=== PATIENT | male | born 1945 | race Caucasian/White ===

== ENCOUNTER 2017-04-18 07:57 | Emergency (ER) | payer BC, OTHER ==
[2017-04-18 08:04] VITALS: BP 182/70; BMI 32.1
[2017-04-18] MEDS ORDERED: TORADOL 30 MG VIAL IVP ONE (08:28)
[2017-04-18] MEDS ORDERED: ZOFRAN INJ 4 MG VIAL IVP ONE (08:36)
--- NOTE | 2017-04-18 08:36 | DR.GENAD ---
HPI - PCP Primary Care Physician: SYLVIA - Complaint/Symptoms Chief Complaint:: PT C/O RT LOWER BACK PAIN THAT RADIATES TO RT FLANK AREA. PT STATES THE PAIN STARTED LAST NIGHT WITHOUT ANY RELIEF PT STATES HE HAS BEEN NAUSEATED WITH VOMITTING THIS AM. PT STATES HE DOES HAVE A HX OF KIDNEY STONES - Source History Provided: Patient - Mode of Arrival Mode of Arrival: Ambulatory - Timing Onset of Chief Complaint: 04/17/17 PMH - PMH Past Medical History: Yes Past Medical History: Diabetes, Gout, Kidney Stones Past Surgical History: No - Family History History of Family Medical Conditions: No - Social History Does any household member use tobacco: No Alcohol Use: None Do you use any recreational Drugs:: No Lives With: Family Lives Where: Home - infectious screening In the last 2 months have you had wt loss of >10#?: NO Have you had fever, night sweats or hemotysis?: No Have you traveled outside the country in the last 6 months?: No Isolation: Standard ROS - Review of Systems Eyes: No Symptoms Reported ENTM: No Symptoms Reported Respiratoy: No Symptoms Reported Cardiovascular: No Symptoms Reported Gastrointestinal/Abdominal: No Symptoms Reported Genitourinary: Other (pain possible kidney stone) Neurological: No Symptoms Reported Musculoskeletal: No Symptoms Reported Integumentary: No Symptoms Reported Hematologic/Lymphatic: No Symptoms Reported Endocrine: No Symptoms Reported Psychiatric: No Symptoms Reported All Other Systems: Reviewed and Negative PE - Vital Signs Vitals: Temperature 97.8 F Pulse Rate 83 Respiratory Rate 18 Blood Pressure 182/70 O2 Sat by Pulse Oximetry 94 - General Limitations: No Limitations General Appearance: Alert, In No Apparent Distress - Head Head Exam: Normal Inspection, Atraumatic - Eyes Eye exam: Normal Appearance, PERRL, EOMI - ENT ENT Exam: Normal Exam External Ear Exam: Normal External Inspection TM/Canal Exam: Bilateral Normal Nose Exam: Normal Nose Exam Mouth Exam: Normal Inspection Throat Exam: Normal Inspection - Neck Neck Exam: Normal Inspection - Chest Chest Inspection: Normal Inspection - Respiratory Respiratory Exam: Normal Lung Sounds Bilat Respiratory Exam: Bilateral Clear to Auscultation - Cardiovascular Cardiovascular Exam: Regular Rate, Normal Rhythm - Abdominal Exam Abdominal Exam: Normal Inspection Abdominal Tenderness: negative: RUQ, RLQ, LUQ, LLQ, Epigastrium, Suprapubic, Diffuse, Mild, Moderate, Severe, Other - Extremities Extremities Exam: Normal Inspection, Full ROM - Back Back Exam: Normal Inspection, Full ROM - Neurologic Neurological Exam: Alert, Oriented X3 - Psychiatric Psychiatric Exam: Normal Affect - Skin Skin Exam: Warm, Dry, Intact Course - Reevaluation 1st: Improved ROR - Labs Reviewed Laboratory: Specimen Type Clean catch urine 04/18/17 08:48 Urine Color Yellow (YELLOW) 04/18/17 08:48 Urine Appearance Clear (CLEAR) 04/18/17 08:48 Urine pH 5.0 (5.0 - 8.0) 04/18/17 08:48 Ur Specific [place] 1.020 (1.000-1.030) 04/18/17 08:48 Urine Protein 4+ (NEGATIVE) 04/18/17 08:48 Urine Glucose (UA) 3+ (NEGATIVE) 04/18/17 08:48 Urine Ketones Negative (NEGATIVE) 04/18/17 08:48 Urine Occult Blood 3+ (NEGATIVE) 04/18/17 08:48 Urine Nitrite Negative (NEGATIVE) 04/18/17 08:48 Urine Bilirubin Negative (NEGATIVE) 04/18/17 08:48 Urine Urobilinogen Normal (NORMAL) 04/18/17 08:48 Ur Leukocyte Esterase Negative (NEGATIVE) 04/18/17 08:48 Urine RBC 01 - 03 /HPF (NEGATIVE) 04/18/17 08:48 Urine WBC 01 - 04 /HPF (NEGATIVE) 04/18/17 08:48 Ur Squamous Epith Cells Rare /HPF (NEGATIVE) 04/18/17 08:48 Amorphous Sediment Trace /HPF (NEGATIVE) 04/18/17 08:48 Urine Bacteria Negative /HPF (NEGATIVE) 04/18/17 08:48 Ur Culture Indicated? No/not indicated 04/18/17 08:48 - XRAY XRAY Interpreted by: Radiologist (CT Abd/Pelv: Tiny,ill defined renal calcifications may represtne tiny nonobstructing renal stones versus medullary nephrocalcinosis. No evidence of obstruction.) - Diagnosis Discharge Problem: Renal stones - Discharge Plan Condition: Stable - Follow ups/Referrals Follow ups/Referrals: NIRAJ WARD [Primary Care Provider] - 3 days - Instructions
[2017-04-18] MEDS ORDERED: TORADOL 30 MG VIAL ONE (08:39)
[2017-04-18] MEDS ORDERED: ZOFRAN INJ 4 MG VIAL ONE (08:39)
[2017-04-18] MEDS ORDERED: NS 1000 ML 1,000 ML ONE (08:39)
[2017-04-18] MEDS ORDERED: MORPHINE SULFATE INJ 4 MG IVP ONE (08:50)
[2017-04-18] MEDS ORDERED: MORPHINE SULFATE INJ 4 MG ONE (08:56)
[2017-04-18] MEDS ORDERED: NS 1000 ML 1,000 ML IV SCH (09:00)
[2017-04-18 09:12] LABS: BILIRUBIN,URINE NEGATIVE (NEGATIVE); BLOOD/HEMOGLOBIN,URINE 3+ (NEGATIVE); GLUCOSE, URINE 3+ (NEGATIVE); KETONES,URINE NEGATIVE (NEGATIVE); LEUKOCYTE ESTERASE ,URINE NEGATIVE (NEGATIVE); NITRITES,URINE NEGATIVE (NEGATIVE); PROTEIN,URINE 4+ (NEGATIVE); UROBILINOGEN,URINE NORMAL (NORMAL)
[2017-04-18 09:20] LABS: APPEARANCE,URINE CLEAR (CLEAR); COLOR,URINE YELLOW (YELLOW)
[2017-04-18 09:26] LABS: BACTERIA,URINE NEGATIVE /HPF (NEGATIVE); SQUAMOUS EPITHELIAL CELL,UR RARE /HPF (NEGATIVE)
[2017-04-18 09:27] LABS: AMORPHOUS SEDIMENT,UR TRACE /HPF (NEGATIVE)
--- NOTE | 2017-04-18 10:19 | CT ---
CT OF THE ABDOMEN AND PELVIS WITHOUT CONTRAST HISTORY: Flank pain. History of kidney stones. Comparison: None Technique: Multiple axial images of the abdomen and pelvis were obtained from the lung bases to the pubic symphy sis without the administration of IV contrast. Dose reduction techniques including Automated Exposur e Control (AEC) and adjustment of mA and kV were utlized. Findings: The heart is normal in size. There is no pericardial effusion. Lung bases are clear without focal con solidation, pleural effusion or pneumothorax. The sensitivity for focal lesion detection within the solid abdominal viscera is diminished without t he use of IV contrast. Liver and spleen are normal in size, and contour. No focal lesions. No ductal dilitation. Gallbladder is present. No calcified gallstones or gallbladder wall thickening. Pancreatic atrophy. Adrenal glan ds are normal. Possible tiny nonobstructing renal stones bilaterally versus medullary nephrocalcinosi s. No obstruction. No hydronephrosis. Simple and complex renal cysts bilaterally. No bowel obstruction or inflammation. Normal appendix. No abnormal appearing mesenteric or retroperit gray lymph nodes. No free fluid or fluid collections. Simple renal cysts. The bladder is normal in appearance. Prostate not enlarged. No free fluid or abnormal pelvic lymph no jason. No aggressive osseous lesions. IMPRESSION: 1. Tiny, ill-defined renal calcifications may represent tiny nonobstructing renal stones versus medu llary nephrocalcinosis. No evidence of obstruction. Reported By:
== END 2017-04-18 11:13 | disposition home or self-care (01) ==
LOC: ER 08:08
DX: N20.0 Calculus of kidney (principal)
CPT/HCPCS: 74176; 81001; 96365; 96367; 96374; 96375; 99283; A4222; J1885; J2270; J2405

== ENCOUNTER 2018-09-16 15:57 | Inpatient (IN) ==
[2018-09-16] MEDS ORDERED: HumuLIN R SUBCUT PRN ×2 (18:13→20:08)
[2018-09-16 18:23] VITALS: BMI 31.5
--- NOTE | 2018-09-16 18:28 | DR.H&P ---
H&P - History & Physical for Day of: H&P Date: 09/16/18 - Chief Complaint Chief Complaint: WEAKNESS, LOWER EXTREMITY CRAMPS, HIGH BLOOD PRESSURE - History of Present Illness History of Present Illness: 72 WM DIRECT ADMIT FROM DR BAIRD OFFICE WITH ACUTE RENAL FAILURE AND HYPERGLYCEMIA. PT HAS PMH OF HTN AND DM. PT HAS BEEN UNDER THE CARE OF [place] FOR CHRONIC DISEASE MANAGEMENT. PT CO 25LBS UNINTENTIONAL WEIGHT LOSS IN THE LAST 6 MOS. PT STATES NORMAL BS 200'S AND GREATER THAN 600 IN OFFICE. BUN 76, CREAT 6.28 NO HX OF RENAL FAILURE. PT DENIES ANY CP OR SOB. PT ADMITTED FOR TREATMENT OF ACUTE RENAL FAILURE, HYPERGLYCEMIA, HYPONATREMIA. - Past Medical History Past Medical History: Diabetes, Gout, Hypertension, Kidney Stones Additional Medical History: BPH - Family History Family Medical History: Coronary Artery Disease, Hypertension - Social History Does patient currently use any type of tobacco product: No Have you used tobacco products in the last 12 months: No Type of Tobacco Use: None Does any household member use tobacco: No Alcohol Use: None Drug Use: None - Medications Home Medications: No Known Drug Allergies Allergy (Verified 09/16/18 17:53) - Review of Systems Constitutional: Weakness Eyes: No Symptoms Reported ENT: No Symptoms Reported Respiratory: No Symptoms Reported Cardiovascular: No Symptoms Reported Gastrointestinal: Nausea Genitourinary: Retention Musculoskeletal: No Symptoms Reported Skin: No Symptoms Reported Neurological: No Symptoms Reported - Physical Exam Vital Signs: Temperature 98.2 F Pulse Rate [Apical] 82 Respiratory Rate 23 Blood Pressure [Left Arm] 197/87 Blood Pressure 182/70 O2 Sat by Pulse Oximetry 97 Oriented: Normal Eyes: Normal Ear: Normal Nose: Normal Throat: Normal Respiratory: RLL Diminished, LLL Diminished Cardiovascular: Normal : Normal Auscultation: Bowel Sounds: Bruit Palpation: Normal Tenderness: Normal Skin: Decreased Turgur Musculoskeletal: Normal Psychiatric: Anxiety Affect: Anxious Speech Pattern: Clear, Appropriate - Assessment/Plan (1) Acute renal failure Status: Acute Plan: ADMIT ICU, CARDIAC MONITORING. STRICT I & O. BP MONITORING, CXR ON ADMISSION. CE AND EKG ON ADMISSION. VERIFY HOME MEDICATION, SSI, IV HYDRATION, MOULTON CATH. HYDRALAZINE IV PRN HYPERTENSION, LIPID CONTROL (2) Hypertensive urgency Status: Acute (3) Hyperglycemia Status: Acute (4) Hyponatremia Status: Acute - Allergies Allergies/Adverse Reactions: Allergies Allergy/AdvReac Type Severity Reaction Status Date / Time No Known Drug Allergies Allergy Verified 09/16/18 17:53
[2018-09-16 18:50] LABS: BILIRUBIN,URINE NEGATIVE (NEGATIVE); BLOOD/HEMOGLOBIN,URINE 2+ (NEGATIVE); GLUCOSE, URINE 4+ (NEGATIVE); KETONES,URINE NEGATIVE (NEGATIVE); LEUKOCYTE ESTERASE ,URINE NEGATIVE (NEGATIVE); NITRITES,URINE NEGATIVE (NEGATIVE); PROTEIN,URINE 4+ (NEGATIVE); UROBILINOGEN,URINE NORMAL (NORMAL)
[2018-09-16 18:53] LABS: AMORPHOUS SEDIMENT,UR 3+ /HPF (NEGATIVE); APPEARANCE,URINE SLIGHTLY HAZY (CLEAR); BACTERIA,URINE TRACE /HPF (NEGATIVE); COLOR,URINE PALE YELLOW (YELLOW); SQUAMOUS EPITHELIAL CELL,UR FEW /HPF (NEGATIVE)
[2018-09-16 18:57] LABS: BASOPHILS # (AUTO) 0.1 X10^3/uL (0.0-0.1); BASOPHILS % (AUTO) 0.7 % (0.2-1.0); EOSINOPHILS # (AUTO) 0.3 x10^3/uL (0.0-0.2); EOSINOPHILS % (AUTO) 3.6 % (0.9-2.9); HEMOGLOBIN 10.8 g/dL (13.5-18.0); LYMPHOCYTES # (AUTO) 1.3 X10^3/uL (1.3-2.9); LYMPHOCYTES % (AUTO) 17.9 % (21.0-51.0); MEAN CORPUSCULAR HEMOGLOBIN 28.6 pg (27.0-34.0); MEAN CORPUSCULAR HGB CONC 32.9 g/dL (33.0-35.0); MEAN CORPUSCULAR VOLUME 87.1 fL (80.0-100.0); MEAN PLATELET VOLUME 8.7 fL (7.4-11.0); MONOCYTES # (AUTO) 0.5 x10^3/uL (0.3-0.8); MONOCYTES % (AUTO) 7.4 % (0.0-13.0); NEUTROPHILS # (AUTO) 5.2 x10^3/uL (2.2-4.8); NEUTROPHILS % (AUTO) 70.4 % (42.0-75.0); PLATELET COUNT 292 X10^3/uL (150.0-450.0); RED BLOOD COUNT 3.79 X10^6/uL (4.7-6.0); RED CELL DISTRIBUTION WIDTH 14.3 % (11.6-16.5); WHITE BLOOD COUNT 7.4 X10^3/uL (3.6-10.0)
--- NOTE | 2018-09-16 18:58 | RAD ---
HISTORY: Shortness of breath Study: Single view chest Comparison:None Findings: Lung volumes are reduced. No infiltrate, effusion or pneumothorax identified. The cardiac and mediastinal contours are within normal limits. The soft tissues are unremarkable. IMPRESSION: 1. No acute cardiopulmonary abnormality. Reported By:
[2018-09-16 19:10] LABS: ABG BASE EXCESS -6.5 mmol/L (-2.0-2.0); ABG HCO3 18.2 mmol/L (22-26)
[2018-09-16 19:12] LABS: ALBUMIN 2.5 g/dL (3.4-5.0); CALCIUM 7.8 mg/dL (8.5-10.1); CARBON DIOXIDE 19.6 mmol/L (21-32); CREATININE 6.47 mg/dL (0.70-1.30); MAGNESIUM 1.7 mg/dL (1.7-2.9); TOTAL PROTEIN 6.3 g/dL (6.4-8.2)
[2018-09-16 19:22] LABS: CKMB % 3.3 % (<4); CREATINE KINASE 101 Units/L (39-308); CREATINE KINASE MB 3.3 ng/mL (0-4.0); TROPONIN I < 0.02 ng/mL (0-1.5)
[2018-09-16] MEDS: APRESOLINE INJ 20 MG VIAL IVP PRN (19:30)
[2018-09-16] MEDS ORDERED: NS 1000 ML 1,000 ML IV ONE (19:58)
[2018-09-16] MEDS: HumuLIN R SUBCUT SCH ×2 (20:23→22:49)
[2018-09-16] MEDS: NS 1000 ML 1,000 ML IV SCH (20:41)
[2018-09-16] MEDS: HYTRIN PO SCH (20:41)
[2018-09-16] MEDS: ZOCOR TAB 40 MG PO SCH (20:41)
[2018-09-16] MEDS ORDERED: ZOCOR TAB 20 MG PO SCH (21:00)
[2018-09-16] MEDS: SNACK - Diabetic Appropriate PO SCH (21:05)
[2018-09-16] MEDS: NORCO 5/325 MG TAB PO PRN (22:50)
[2018-09-17] MEDS: HumuLIN R SUBCUT SCH ×4 (04:30→21:32)
[2018-09-17 05:51] LABS: BASOPHILS # (AUTO) 0.1 X10^3/uL (0.0-0.1); EOSINOPHILS # (AUTO) 0.3 x10^3/uL (0.0-0.2); EOSINOPHILS % (AUTO) 4.3 % (0.9-2.9); HEMOGLOBIN 8.9 g/dL (13.5-18.0); LYMPHOCYTES # (AUTO) 1.8 X10^3/uL (1.3-2.9); LYMPHOCYTES % (AUTO) 22.1 % (21.0-51.0); MEAN CORPUSCULAR HEMOGLOBIN 29.1 pg (27.0-34.0); MEAN CORPUSCULAR HGB CONC 34.3 g/dL (33.0-35.0); MEAN CORPUSCULAR VOLUME 84.8 fL (80.0-100.0); MEAN PLATELET VOLUME 8.8 fL (7.4-11.0); MONOCYTES # (AUTO) 0.8 x10^3/uL (0.3-0.8); MONOCYTES % (AUTO) 10.2 % (0.0-13.0); NEUTROPHILS % (AUTO) 62.4 % (42.0-75.0); PLATELET COUNT 244 X10^3/uL (150.0-450.0); RED BLOOD COUNT 3.07 X10^6/uL (4.7-6.0); RED CELL DISTRIBUTION WIDTH 14.2 % (11.6-16.5); WHITE BLOOD COUNT 8.1 X10^3/uL (3.6-10.0)
[2018-09-17 05:56] LABS: ALBUMIN 1.9 g/dL (3.4-5.0); CALCIUM 7.2 mg/dL (8.5-10.1); CARBON DIOXIDE 20.3 mmol/L (21-32); COR CA(FOR HYPOALB) 8.9 mg/dL (8.5-10.1); CREATININE 6.19 mg/dL (0.70-1.30); TOTAL PROTEIN 4.9 g/dL (6.4-8.2)
[2018-09-17] MEDS: MAGNESIUM SULFATE 1 GRAM/100 mL PREMIX 1 GM/100 ML BAG IV PRN ×2 (08:12→11:34)
[2018-09-17] MEDS: NS 1000 ML 1,000 ML IV SCH ×3 (09:15→23:09)
[2018-09-17] MEDS: LOVENOX INJ 30 MG SYR SC SCH (11:35)
--- NOTE | 2018-09-17 14:26 | US ---
History: Abnormal renal function Study: Ultrasound of the kidneys Comparison: None Findings: The right kidney measures 9.22 x 5.4 x 4.8 cm with cortical thickness of 1.4 cm. There is a 3.4 cm cyst off the upper pole of the right kidney. The left kidney measures 10.94 x 4.66 x 4.53 cm with cortical thickness of 1.6 cm. There is no hydronephrosis. Echogenicity of renal cortex is within normal limits. The urinary bladder is decompressed by a [place] balloon catheter. Impression: Right renal cyst, otherwise negative Reported By:
[2018-09-17] MEDS: APRESOLINE INJ 20 MG VIAL IVP PRN (15:32)
[2018-09-17] MEDS: SNACK - Diabetic Appropriate PO SCH (20:40)
[2018-09-17] MEDS: ZOCOR TAB 40 MG PO SCH (20:42)
[2018-09-17] MEDS: HYTRIN PO SCH (20:42)
[2018-09-17] MEDS: NORVASC TAB 5 MG PO SCH (23:00)
[2018-09-18] MEDS: NORCO 5/325 MG TAB PO PRN (02:16)
[2018-09-18] MEDS: HumuLIN R SUBCUT SCH ×4 (05:47→21:30)
[2018-09-18 06:10] LABS: BASOPHILS # (AUTO) 0.1 X10^3/uL (0.0-0.1); BASOPHILS % (AUTO) 0.7 % (0.2-1.0); EOSINOPHILS # (AUTO) 0.3 x10^3/uL (0.0-0.2); EOSINOPHILS % (AUTO) 3.1 % (0.9-2.9); HEMATOCRIT 27.9 % (42.0-54.0); HEMOGLOBIN 9.5 g/dL (13.5-18.0); LYMPHOCYTES # (AUTO) 1.3 X10^3/uL (1.3-2.9); LYMPHOCYTES % (AUTO) 13.8 % (21.0-51.0); MEAN CORPUSCULAR HEMOGLOBIN 29.3 pg (27.0-34.0); MEAN CORPUSCULAR HGB CONC 34.2 g/dL (33.0-35.0); MEAN CORPUSCULAR VOLUME 85.7 fL (80.0-100.0); MEAN PLATELET VOLUME 8.7 fL (7.4-11.0); MONOCYTES # (AUTO) 0.9 x10^3/uL (0.3-0.8); MONOCYTES % (AUTO) 9.6 % (0.0-13.0); NEUTROPHILS # (AUTO) 6.6 x10^3/uL (2.2-4.8); NEUTROPHILS % (AUTO) 72.8 % (42.0-75.0); PLATELET COUNT 245 X10^3/uL (150.0-450.0); RED BLOOD COUNT 3.25 X10^6/uL (4.7-6.0); RED CELL DISTRIBUTION WIDTH 13.9 % (11.6-16.5); WHITE BLOOD COUNT 9.1 X10^3/uL (3.6-10.0)
[2018-09-18 06:19] LABS: ALBUMIN 1.9 g/dL (3.4-5.0); CALCIUM 7.5 mg/dL (8.5-10.1); CARBON DIOXIDE 16.2 mmol/L (21-32); COR CA(FOR HYPOALB) 9.2 mg/dL (8.5-10.1); CREATININE 5.68 mg/dL (0.70-1.30); MAGNESIUM 1.7 mg/dL (1.7-2.9); TOTAL PROTEIN 5.1 g/dL (6.4-8.2)
[2018-09-18] MEDS: NS 1000 ML 1,000 ML IV SCH ×3 (07:21→18:16)
[2018-09-18] MEDS: LOVENOX INJ 30 MG SYR SC SCH (09:13)
[2018-09-18] MEDS ORDERED: ROBITUSSIN DM PO PRN (09:45)
[2018-09-18] MEDS: ROCEPHIN VIAL 1 GRAM IVP SCH (11:25)
[2018-09-18] MEDS: NORCO 10/325 TAB PO PRN (11:27)
--- NOTE | 2018-09-18 12:28 | RAD ---
Examination: Right knee, two views History: Fell Findings: No definite fracture or dislocation. There is prepatellar soft tissue swelling. Small punctate opacities are noted in the prepatellar soft tissues. Articular compartments are preserved. Impression: Anterior soft tissue swelling. No fracture identified. Clinically correlate for prepatellar skin surface or subcutaneous foreign fragments. Reported By:
--- NOTE | 2018-09-18 16:55 | PCM.PROG ---
Progress Note - Progress Note for Day of Date of Exam: 09/17/18 - Subjective Subjective: 72 WM ADMITTED ON 09/16 WITH ACUTE RENAL FAILURE, HYPERGLYCEMIA, METABOLIC ACIDOSIS, HYPONATREMIA. PT HAS PMH OF DM, NO HX OF CAD RO RENAL DISEASE. PT HAS MOULTON CATH WITH STRICT I& OS, RENAL US ORDERED FOR THIS AM. PT RECEIVING GENTLE IV HYDRATION WITH CLEAR CXR. AM LABS BUN 74, CREAST 6.19 AND CO2 20.3 SLIGHTLY IMPROVING. PLAN TO RESTART HOME BP MEDICATION, ENCOURAGE ORAL HYDRATION. ANEMIA PANEL AND OCCULT STOOL. REPEAT AM LABS AND CONTINUE SSI AND BLOOD SUGAR CONTROL. - Past Medical Family Social History Past Med/Fam/Surg Hx: No changes since H&P Allergies: Allergies No Known Drug Allergies Allergy (Verified 09/16/18 17:53) - Review of Systems ROS: No change since H&P - Vital Signs and I&O's Vital Signs: Temperature 100.2 F Pulse Rate [Apical] 82 Pulse Rate 91 Respiratory Rate 23 Blood Pressure [Left Arm] 197/87 Blood Pressure 183/84 O2 Sat by Pulse Oximetry 98 Intake and Output: Intake & Output 09/16/18 09/17/18 09/18/18 09/19/18 11:59 11:59 11:59 11:59 Intake Total 2025 / 2025 3113 / 3113 786 / 786 Output Total 900 / 900 2700 / 2700 1400 / 1400 Balance 1126 / 1126 413 / 413 -614 / -614 - Physical Exam Oriented: Normal Eyes: Normal Ear: Normal Nose: Normal Throat: Normal Cardiovascular: Normal, Edema (+ 2 LE EDEMA, BILATERAL) : Normal Auscultation: Bowel Sounds: Bruit Tenderness: Normal Skin: Normal, Decreased Turgur Musculoskeletal: Normal Psychiatric: Anxiety Affect: Anxious Speech Pattern: Clear, Appropriate - Laboratory and Diagnostics Result Diagrams: 09/18/18 05:23 09/18/18 05:23 Labs: 09/16/18 18:48 Blood Blood Culture - Preliminary 09/16/18 18:43 Blood Blood Culture - Preliminary Laboratory WBC 9.1 X10^3/uL (3.6-10.0) 09/18/18 05:23 RBC 3.25 X10^6/uL (4.7-6.0) L 09/18/18 05:23 Hgb 9.5 g/dL (13.5-18.0) L 09/18/18 05:23 Hct 27.9 % (42.0-54.0) L 09/18/18 05:23 MCV 85.7 fL (80.0-100.0) 09/18/18 05:23 MCH 29.3 pg (27.0-34.0) 09/18/18 05:23 MCHC 34.2 g/dL (33.0-35.0) 09/18/18 05:23 RDW 13.9 % (11.6-16.5) 09/18/18 05:23 Plt Count 245 X10^3/uL (150.0-450.0) 09/18/18 05:23 MPV 8.7 fL (7.4-11.0) 09/18/18 05:23 Neut % (Auto) 72.8 % (42.0-75.0) 09/18/18 05:23 Lymph % (Auto) 13.8 % (21.0-51.0) L 09/18/18 05:23 [place] % (Auto) 9.6 % (0.0-13.0) 09/18/18 05:23 Eos % (Auto) 3.1 % (0.9-2.9) H 09/18/18 05:23 Baso % (Auto) 0.7 % (0.2-1.0) 09/18/18 05:23 Neut # (Auto) 6.6 x10^3/uL (2.2-4.8) H 09/18/18 05:23 Lymph # (Auto) 1.3 X10^3/uL (1.3-2.9) 09/18/18 05:23 [place] # (Auto) 0.9 x10^3/uL (0.3-0.8) H 09/18/18 05:23 Eos # (Auto) 0.3 x10^3/uL (0.0-0.2) H 09/18/18 05:23 Baso # (Auto) 0.1 X10^3/uL (0.0-0.1) 09/18/18 05:23 Absolute Nucleated RBC 0.0 /100WBC 09/18/18 05:23 Sample Site Lt br 09/16/18 19:05 ABG pH 7.350 (7.35-7.45) 09/16/18 19:05 ABG pCO2 33.0 mmHg (35.0-45.0) L 09/16/18 19:05 ABG pO2 89.0 mmHg (80.0-100.0) 09/16/18 19:05 ABG HCO3 18.2 mmol/L (22-26) L 09/16/18 19:05 ABG O2 Saturation 96.0 % (90-100) 09/16/18 19:05 ABG Base Excess -6.5 mmol/L (-2.0-2.0) L 09/16/18 19:05 Chuck Test Na 09/16/18 19:05 A-a Gradient 19.0 mmHg 09/16/18 19:05 FiO2 21.0 09/16/18 19:05 Blood Gas Comments Luís well gmb 09/16/18 19:05 Sodium 135 mmol/L (136-145) L 09/18/18 05:23 Corrected Sodium 138 mmol/L (136-145) 09/18/18 05:23 Potassium 4.3 mmol/L (3.5-5.1) 09/18/18 05:23 Chloride 105 mmol/L (98-107) 09/18/18 05:23 Carbon Dioxide 16.2 mmol/L (21-32) L 09/18/18 05:23 BUN 64 mg/dL (7-18) H 09/18/18 05:23 Creatinine 5.68 mg/dL (0.70-1.30) H 09/18/18 05:23 Est GFR (MDRD) Af Amer 13 (>60) L 09/18/18 05:23 Est GFR (MDRD) Non-Af 11 (>60) L 09/18/18 05:23 Glucose 237 mg/dL (65-99) H 09/18/18 05:23 POC Glucose (mg/dL) 216 mg/dL (65-99) H 09/18/18 15:58 Uric Acid 7.8 mg/dL (3.5-7.2) H 09/18/18 05:23 Calcium 7.5 mg/dL (8.5-10.1) L 09/18/18 05:23 Corrected Calcium 9.2 mg/dL (8.5-10.1) 09/18/18 05:23 Magnesium 1.7 mg/dL (1.7-2.9) 09/18/18 05:23 Iron 32 ug/dL (50-175) L 09/17/18 05:25 Transferrin 136 mg/dL (202-364) L 09/17/18 05:25 Ferritin 142 ng/mL (26-388) 09/17/18 05:25 Total Bilirubin 0.30 mg/dL (0.2-1.0) 09/18/18 05:23 AST 11 Units/L (15-37) L 09/18/18 05:23 ALT 13 Units/L (12-78) 09/18/18 05:23 Alkaline Phosphatase 81 Units/L (46-116) 09/18/18 05:23 Creatine Kinase 101 Units/L (39-308) 09/16/18 18:43 CK-MB (CK-2) 3.3 ng/mL (0-4.0) 09/16/18 18:43 CK/CKMB % Calc 3.3 % (<4) 09/16/18 18:43 Troponin I < 0.02 ng/mL (0-1.5) 09/16/18 18:43 Total Protein 5.1 g/dL (6.4-8.2) L 09/18/18 05:23 Albumin 1.9 g/dL (3.4-5.0) L 09/18/18 05:23 Globulin 3.2 g/dL (2.5-4.5) 09/18/18 05:23 Albumin/Globulin Ratio 0.6 Ratio (1.1-2.1) L 09/18/18 05:23 Vitamin B12 362 pg/mL (193-986) 09/17/18 05:25 Folate 4.3 ng/mL (>8.6) L 09/17/18 05:25 Specimen Type Catherized urine 09/16/18 18:42 Urine Color Pale yellow (YELLOW) 09/16/18 18:42 Urine Appearance Slightly hazy (CLEAR) 09/16/18 18:42 Urine pH 5.0 (5.0 - 8.0) 09/16/18 18:42 Ur Specific [place] 1.010 (1.000-1.030) 09/16/18 18:42 Urine Protein 4+ (NEGATIVE) 09/16/18 18:42 Urine Glucose (UA) 4+ (NEGATIVE) 09/16/18 18:42 Urine Ketones Negative (NEGATIVE) 09/16/18 18:42 Urine Occult Blood 2+ (NEGATIVE) 09/16/18 18:42 Urine Nitrite Negative (NEGATIVE) 09/16/18 18:42 Urine Bilirubin Negative (NEGATIVE) 09/16/18 18:42 Urine Urobilinogen Normal (NORMAL) 09/16/18 18:42 Ur Leukocyte Esterase Negative (NEGATIVE) 09/16/18 18:42 Urine RBC 5-10 /HPF (NONE SEEN) 09/16/18 18:42 Urine WBC 0-2 /HPF (NONE SEEN) 09/16/18 18:42 Ur Squamous Epith Cells Few /HPF (NEGATIVE) 09/16/18 18:42 Amorphous Sediment 3+ /HPF (NEGATIVE) 09/16/18 18:42 Urine Bacteria Trace /HPF (NEGATIVE) 09/16/18 18:42 Ur Culture Indicated? No/not indicated 09/16/18 18:42 Stool Description Fob tube 09/17/18 15:00 Stl Occult Blood (IFOB) Negative (NEGATIVE) 09/17/18 15:00 Acetone, Semi-Quant Negative (NEGATIVE) 09/16/18 18:43 - Plan (1) Acute renal failure Status: Acute Plan: CONTINUOUS CARDIAC MONITORING. STRICT I & O. BP MONITORING, AM CHEST XRAY. CE AND EKG ON ADMISSION. VERIFY HOME MEDICATION, SSI, IV HYDRATION, FOLE Y CATH. HYDRALAZINE IV PRN HYPERTENSION, LIPID CONTROL (2) Hypertensive urgency Status: Acute (3) Hyperglycemia Status: Acute (4) Hyponatremia Status: Acute (5) Anemia Status: Acute Plan: ANEMIA PANEL, OCCULT STOOL
--- NOTE | 2018-09-18 16:58 | PCM.PROG ---
Progress Note - Progress Note for Day of Date of Exam: 09/18/18 - Subjective Subjective: 72 WM ADMITTED ON 09/16 WITH ACUTE RENAL FAILURE, HYPERGLYCEMIA, METABOLIC ACIDOSIS, HYPONATREMIA. PT HAS PMH OF DM, NO HX OF CAD RO RENAL DISEASE. PT HAS MOULTON CATH WITH STRICT I& OS, RENAL US WITHOUT RAD PT RECEIVING GENTLE IV HYDRATION WITH AM LABS BUN 64, CREAST 5.68 AND CO2 16.2 SLIGHTLY IMPROVING. ENCOURAGE ORAL HYDRATION. ANEMIA PANEL WITH LOW FE, WILL START PO REPLACEMENT AND OCCULT STOOL NEGATIVE. 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, WILL OBTAIN XRAY, URIN ACID LEVEL AND PAIN CONTROL - Past Medical Family Social History Past Med/Fam/Surg Hx: No changes since H&P Allergies: Allergies No Known Drug Allergies Allergy (Verified 09/16/18 17:53) - Review of Systems ROS: No change since H&P - Vital Signs and I&O's Vital Signs: Temperature 100.2 F Pulse Rate [Apical] 82 Pulse Rate 91 Respiratory Rate 23 Blood Pressure [Left Arm] 197/87 Blood Pressure 183/84 O2 Sat by Pulse Oximetry 98 Intake and Output: Intake & Output 09/16/18 09/17/18 09/18/18 09/19/18 11:59 11:59 11:59 11:59 Intake Total 2025 / 2025 3113 / 3113 786 / 786 Output Total 900 / 900 2700 / 2700 1400 / 1400 Balance 1126 / 1126 413 / 413 -614 / -614 - Physical Exam Oriented: Normal Eyes: Normal Ear: Normal Nose: Normal Throat: Normal Cardiovascular: Normal, Edema (+ 2 LE EDEMA, BILATERAL) : Normal Auscultation: Bowel Sounds: Bruit Tenderness: Normal Skin: Normal, Decreased Turgur Musculoskeletal: Normal Psychiatric: Anxiety Affect: Anxious Speech Pattern: Clear, Appropriate - Laboratory and Diagnostics Result Diagrams: 09/18/18 05:23 09/18/18 05:23 Labs: 09/16/18 18:48 Blood Blood Culture - Preliminary 09/16/18 18:43 Blood Blood Culture - Preliminary Laboratory WBC 9.1 X10^3/uL (3.6-10.0) 09/18/18 05:23 RBC 3.25 X10^6/uL (4.7-6.0) L 09/18/18 05:23 Hgb 9.5 g/dL (13.5-18.0) L 09/18/18 05:23 Hct 27.9 % (42.0-54.0) L 09/18/18 05:23 MCV 85.7 fL (80.0-100.0) 09/18/18 05:23 MCH 29.3 pg (27.0-34.0) 09/18/18 05:23 MCHC 34.2 g/dL (33.0-35.0) 09/18/18 05:23 RDW 13.9 % (11.6-16.5) 09/18/18 05:23 Plt Count 245 X10^3/uL (150.0-450.0) 09/18/18 05:23 MPV 8.7 fL (7.4-11.0) 09/18/18 05:23 Neut % (Auto) 72.8 % (42.0-75.0) 09/18/18 05:23 Lymph % (Auto) 13.8 % (21.0-51.0) L 09/18/18 05:23 [place] % (Auto) 9.6 % (0.0-13.0) 09/18/18 05:23 Eos % (Auto) 3.1 % (0.9-2.9) H 09/18/18 05:23 Baso % (Auto) 0.7 % (0.2-1.0) 09/18/18 05:23 Neut # (Auto) 6.6 x10^3/uL (2.2-4.8) H 09/18/18 05:23 Lymph # (Auto) 1.3 X10^3/uL (1.3-2.9) 09/18/18 05:23 [place] # (Auto) 0.9 x10^3/uL (0.3-0.8) H 09/18/18 05:23 Eos # (Auto) 0.3 x10^3/uL (0.0-0.2) H 09/18/18 05:23 Baso # (Auto) 0.1 X10^3/uL (0.0-0.1) 09/18/18 05:23 Absolute Nucleated RBC 0.0 /100WBC 09/18/18 05:23 Sample Site Lt br 09/16/18 19:05 ABG pH 7.350 (7.35-7.45) 09/16/18 19:05 ABG pCO2 33.0 mmHg (35.0-45.0) L 09/16/18 19:05 ABG pO2 89.0 mmHg (80.0-100.0) 09/16/18 19:05 ABG HCO3 18.2 mmol/L (22-26) L 09/16/18 19:05 ABG O2 Saturation 96.0 % (90-100) 09/16/18 19:05 ABG Base Excess -6.5 mmol/L (-2.0-2.0) L 09/16/18 19:05 Chuck Test Na 09/16/18 19:05 A-a Gradient 19.0 mmHg 09/16/18 19:05 FiO2 21.0 09/16/18 19:05 Blood Gas Comments Luís well gmb 09/16/18 19:05 Sodium 135 mmol/L (136-145) L 09/18/18 05:23 Corrected Sodium 138 mmol/L (136-145) 09/18/18 05:23 Potassium 4.3 mmol/L (3.5-5.1) 09/18/18 05:23 Chloride 105 mmol/L (98-107) 09/18/18 05:23 Carbon Dioxide 16.2 mmol/L (21-32) L 09/18/18 05:23 BUN 64 mg/dL (7-18) H 09/18/18 05:23 Creatinine 5.68 mg/dL (0.70-1.30) H 09/18/18 05:23 Est GFR (MDRD) Af Amer 13 (>60) L 09/18/18 05:23 Est GFR (MDRD) Non-Af 11 (>60) L 09/18/18 05:23 Glucose 237 mg/dL (65-99) H 09/18/18 05:23 POC Glucose (mg/dL) 216 mg/dL (65-99) H 09/18/18 15:58 Uric Acid 7.8 mg/dL (3.5-7.2) H 09/18/18 05:23 Calcium 7.5 mg/dL (8.5-10.1) L 09/18/18 05:23 Corrected Calcium 9.2 mg/dL (8.5-10.1) 09/18/18 05:23 Magnesium 1.7 mg/dL (1.7-2.9) 09/18/18 05:23 Iron 32 ug/dL (50-175) L 09/17/18 05:25 Transferrin 136 mg/dL (202-364) L 09/17/18 05:25 Ferritin 142 ng/mL (26-388) 09/17/18 05:25 Total Bilirubin 0.30 mg/dL (0.2-1.0) 09/18/18 05:23 AST 11 Units/L (15-37) L 09/18/18 05:23 ALT 13 Units/L (12-78) 09/18/18 05:23 Alkaline Phosphatase 81 Units/L (46-116) 09/18/18 05:23 Creatine Kinase 101 Units/L (39-308) 09/16/18 18:43 CK-MB (CK-2) 3.3 ng/mL (0-4.0) 09/16/18 18:43 CK/CKMB % Calc 3.3 % (<4) 09/16/18 18:43 Troponin I < 0.02 ng/mL (0-1.5) 09/16/18 18:43 Total Protein 5.1 g/dL (6.4-8.2) L 09/18/18 05:23 Albumin 1.9 g/dL (3.4-5.0) L 09/18/18 05:23 Globulin 3.2 g/dL (2.5-4.5) 09/18/18 05:23 Albumin/Globulin Ratio 0.6 Ratio (1.1-2.1) L 09/18/18 05:23 Vitamin B12 362 pg/mL (193-986) 09/17/18 05:25 Folate 4.3 ng/mL (>8.6) L 09/17/18 05:25 Specimen Type Catherized urine 09/16/18 18:42 Urine Color Pale yellow (YELLOW) 09/16/18 18:42 Urine Appearance Slightly hazy (CLEAR) 09/16/18 18:42 Urine pH 5.0 (5.0 - 8.0) 09/16/18 18:42 Ur Specific [place] 1.010 (1.000-1.030) 09/16/18 18:42 Urine Protein 4+ (NEGATIVE) 09/16/18 18:42 Urine Glucose (UA) 4+ (NEGATIVE) 09/16/18 18:42 Urine Ketones Negative (NEGATIVE) 09/16/18 18:42 Urine Occult Blood 2+ (NEGATIVE) 09/16/18 18:42 Urine Nitrite Negative (NEGATIVE) 09/16/18 18:42 Urine Bilirubin Negative (NEGATIVE) 09/16/18 18:42 Urine Urobilinogen Normal (NORMAL) 09/16/18 18:42 Ur Leukocyte Esterase Negative (NEGATIVE) 09/16/18 18:42 Urine RBC 5-10 /HPF (NONE SEEN) 09/16/18 18:42 Urine WBC 0-2 /HPF (NONE SEEN) 09/16/18 18:42 Ur Squamous Epith Cells Few /HPF (NEGATIVE) 09/16/18 18:42 Amorphous Sediment 3+ /HPF (NEGATIVE) 09/16/18 18:42 Urine Bacteria Trace /HPF (NEGATIVE) 09/16/18 18:42 Ur Culture Indicated? No/not indicated 09/16/18 18:42 Stool Description Fob tube 09/17/18 15:00 Stl Occult Blood (IFOB) Negative (NEGATIVE) 09/17/18 15:00 Acetone, Semi-Quant Negative (NEGATIVE) 09/16/18 18:43 - Plan (1) Acute renal failure Status: Acute Plan: CONTINUOUS CARDIAC MONITORING. STRICT I & O. BP MONITORING, AM CHEST XRAY. CE AND EKG ON ADMISSION. VERIFY HOME MEDICATION, SSI, IV HYDRATION, MOULTON CATH. HYDRALAZINE IV PRN HYPERTENSION, LIPID CONTROL (2) Hypertensive urgency Status: Acute (3) Hyperglycemia Status: Acute (4) Hyponatremia Status: Acute (5) Anemia Status: Acute Plan: ANEMIA PANEL, OCCULT STOOL
[2018-09-18] MEDS: NORVASC TAB 5 MG PO SCH (20:44)
[2018-09-18] MEDS: HYTRIN PO SCH (20:44)
[2018-09-18] MEDS: ZOCOR TAB 40 MG PO SCH (20:44)
[2018-09-18] MEDS: SNACK - Diabetic Appropriate PO SCH (21:00)
[2018-09-19] MEDS: NS 1000 ML 1,000 ML IV SCH ×2 (03:00→09:47)
[2018-09-19] MEDS ORDERED: ZOFRAN INJ 4 MG VIAL ONE (05:55)
[2018-09-19] MEDS: ZOFRAN INJ 4 MG VIAL IVP PRN (06:02)
[2018-09-19] MEDS: HumuLIN R SUBCUT SCH ×4 (06:05→20:30)
[2018-09-19 06:10] LABS: BASOPHILS % (AUTO) 0.5 % (0.2-1.0); EOSINOPHILS # (AUTO) 0.2 x10^3/uL (0.0-0.2); EOSINOPHILS % (AUTO) 2.1 % (0.9-2.9); HEMATOCRIT 29.7 % (42.0-54.0); HEMOGLOBIN 9.9 g/dL (13.5-18.0); LYMPHOCYTES # (AUTO) 0.9 X10^3/uL (1.3-2.9); LYMPHOCYTES % (AUTO) 8.2 % (21.0-51.0); MEAN CORPUSCULAR HEMOGLOBIN 28.9 pg (27.0-34.0); MEAN CORPUSCULAR HGB CONC 33.5 g/dL (33.0-35.0); MEAN CORPUSCULAR VOLUME 86.1 fL (80.0-100.0); MEAN PLATELET VOLUME 8.8 fL (7.4-11.0); MONOCYTES # (AUTO) 1.2 x10^3/uL (0.3-0.8); MONOCYTES % (AUTO) 11.9 % (0.0-13.0); NEUTROPHILS % (AUTO) 77.3 % (42.0-75.0); PLATELET COUNT 244 X10^3/uL (150.0-450.0); RED BLOOD COUNT 3.44 X10^6/uL (4.7-6.0); RED CELL DISTRIBUTION WIDTH 13.7 % (11.6-16.5); WHITE BLOOD COUNT 10.4 X10^3/uL (3.6-10.0)
[2018-09-19 06:15] LABS: ALBUMIN 1.7 g/dL (3.4-5.0); CALCIUM 7.7 mg/dL (8.5-10.1); COR CA(FOR HYPOALB) 9.5 mg/dL (8.5-10.1); CREATININE 5.63 mg/dL (0.70-1.30); TOTAL PROTEIN 5.2 g/dL (6.4-8.2)
[2018-09-19 06:24] LABS: CARBON DIOXIDE 13.8 mmol/L (21-32)
[2018-09-19] MEDS: NORCO 10/325 TAB PO PRN (07:03)
[2018-09-19] MEDS: LOVENOX INJ 30 MG SYR SC SCH (08:51)
[2018-09-19] MEDS: ROCEPHIN VIAL 1 GRAM IVP SCH (08:53)
[2018-09-19] MEDS ORDERED: SODIUM BICARBONATE 8.4% INJ ADULT ONE (10:09)
[2018-09-19] MEDS ORDERED: NS 1000 ML 1,000 ML with SODIUM BICARBONATE 8.4% INJ ADULT 100 ML IV ONE ×2 (10:18)
[2018-09-19] MEDS: NS 1000 ML 1,000 ML with SODIUM BICARBONATE 8.4% INJ ADULT 100 ML IV SCH ×2 (12:15)
[2018-09-19] MEDS: APRESOLINE INJ 20 MG VIAL IVP PRN (17:20)
--- NOTE | 2018-09-19 19:36 | PCM.PROG ---
Progress Note - Progress Note for Day of Date of Exam: 09/19/18 - Subjective Subjective: MR. WARNER IS A 72 WM, PATIENT OF . HE WAS ADMITTED ON 09/16 WITH ACUTE RENAL FAILURE, HYPERGLYCEMIA, METABOLIC ACIDOSIS, HYPONATREMIA. PT HAS PMH OF DM, NO HX OF CAD RO RENAL DISEASE. PT HAS MOULTON CATH WITH STRICT I& OS. PT RECEIVING GENTLE IV HYDRATION. HE IS ALERT AND ORIENTED ON MORNING ROUNDS. HE REPORTS GENERALIZED WEAKNESS. ON EXAMINATION, HEART IS REGULAR IN RATE AND RHYTHM. BILATERAL LUNGS ARE CLEAR TO AUSCULTATION. ABDOMEN IS ROUND, SOFT, AND NON-TENDER WITH NORMAL BOWEL SOUNDS NOTED IN ALL QUADRANTS. HE IS NOTED WITH A TEMPERATURE OF 100.4 THIS MORNING. BUN IS 63, CREATININE 5.63, GLUCOSE 275. TODAY WE WILL BOLUS HIM WITH ONE LITER OF NORMAL SALINE WITH 2 AMPS OF BICARB, WE WILL THEN RUN MAINTENANCE FLUIDS OF NORMAL SALINE WITH 2 AMPS BICARB IN EACH LITER AT 100ML/HR. WE WILL ENCOURAGE ORAL HYDRATION. REPEAT AM LABS AND CONTINUE SSI AND BLOOD SUGAR CONTROL. WE WILL FOLLOW UP WITH AM LABS AND CHEST XRAY AND CONTINUE TO MONITOR. - Past Medical Family Social History Past Med/Fam/Surg Hx: No changes since H&P Allergies: Allergies No Known Drug Allergies Allergy (Verified 09/16/18 17:53) - Review of Systems ROS: No change since H&P - Vital Signs and I&O's Vital Signs: Temperature 99.4 F Pulse Rate [Apical] 82 Pulse Rate 102 Respiratory Rate 30 Blood Pressure [Left Arm] 197/87 Blood Pressure 158/71 O2 Sat by Pulse Oximetry 96 Intake and Output: Intake & Output 09/17/18 09/18/18 09/19/18 09/20/18 11:59 11:59 11:59 11:59 Intake Total 2025 / 2025 3113 / 3113 2921 / 2921 2605 / 2605 Output Total 900 / 900 2700 / 2700 2900 / 2900 750 / 750 Balance 1126 / 1126 413 / 413 185 / 1855 - Physical Exam Oriented: Normal Eyes: Normal Ear: Normal Nose: Normal Throat: Normal Respiratory: Normal Cardiovascular: Normal, Edema (+ 2 LE EDEMA, BILATERAL) : Normal Auscultation: Bowel Sounds: Bruit Palpation: Normal Tenderness: Normal Skin: Normal, Decreased Turgur Musculoskeletal: Normal Psychiatric: Anxiety Affect: Anxious Speech Pattern: Clear, Appropriate - Laboratory and Diagnostics Result Diagrams: 09/19/18 05:34 09/19/18 05:34 Labs: 09/16/18 18:48 Blood Blood Culture - Preliminary 09/16/18 18:43 Blood Blood Culture - Preliminary Laboratory WBC 10.4 X10^3/uL (3.6-10.0) H 09/19/18 05:34 RBC 3.44 X10^6/uL (4.7-6.0) L 09/19/18 05:34 Hgb 9.9 g/dL (13.5-18.0) L 09/19/18 05:34 Hct 29.7 % (42.0-54.0) L 09/19/18 05:34 MCV 86.1 fL (80.0-100.0) 09/19/18 05:34 MCH 28.9 pg (27.0-34.0) 09/19/18 05:34 MCHC 33.5 g/dL (33.0-35.0) 09/19/18 05:34 RDW 13.7 % (11.6-16.5) 09/19/18 05:34 Plt Count 244 X10^3/uL (150.0-450.0) 09/19/18 05:34 MPV 8.8 fL (7.4-11.0) 09/19/18 05:34 Neut % (Auto) 77.3 % (42.0-75.0) H 09/19/18 05:34 Lymph % (Auto) 8.2 % (21.0-51.0) L 09/19/18 05:34 [place] % (Auto) 11.9 % (0.0-13.0) 09/19/18 05:34 Eos % (Auto) 2.1 % (0.9-2.9) 09/19/18 05:34 Baso % (Auto) 0.5 % (0.2-1.0) 09/19/18 05:34 Neut # (Auto) 8.0 x10^3/uL (2.2-4.8) H 09/19/18 05:34 Lymph # (Auto) 0.9 X10^3/uL (1.3-2.9) L 09/19/18 05:34 [place] # (Auto) 1.2 x10^3/uL (0.3-0.8) H 09/19/18 05:34 Eos # (Auto) 0.2 x10^3/uL (0.0-0.2) 09/19/18 05:34 Baso # (Auto) 0.0 X10^3/uL (0.0-0.1) 09/19/18 05:34 Absolute Nucleated RBC 0.0 /100WBC 09/19/18 05:34 Sample Site Lt br 09/16/18 19:05 ABG pH 7.350 (7.35-7.45) 09/16/18 19:05 ABG pCO2 33.0 mmHg (35.0-45.0) L 09/16/18 19:05 ABG pO2 89.0 mmHg (80.0-100.0) 09/16/18 19:05 ABG HCO3 18.2 mmol/L (22-26) L 09/16/18 19:05 ABG O2 Saturation 96.0 % (90-100) 09/16/18 19:05 ABG Base Excess -6.5 mmol/L (-2.0-2.0) L 09/16/18 19:05 Chuck Test Na 09/16/18 19:05 A-a Gradient 19.0 mmHg 09/16/18 19:05 FiO2 21.0 09/16/18 19:05 Blood Gas Comments Luís well gmb 09/16/18 19:05 Sodium 134 mmol/L (136-145) L 09/19/18 05:34 Corrected Sodium 138 mmol/L (136-145) 09/19/18 05:34 Potassium 4.3 mmol/L (3.5-5.1) 09/19/18 05:34 Chloride 105 mmol/L (98-107) 09/19/18 05:34 Carbon Dioxide 13.8 mmol/L (21-32) L* 09/19/18 05:34 BUN 63 mg/dL (7-18) H 09/19/18 05:34 Creatinine 5.63 mg/dL (0.70-1.30) H 09/19/18 05:34 Est GFR (MDRD) Af Amer 13 (>60) L 09/19/18 05:34 Est GFR (MDRD) Non-Af 11 (>60) L 09/19/18 05:34 Glucose 275 mg/dL (65-99) H 09/19/18 05:34 POC Glucose (mg/dL) 284 mg/dL (65-99) H 09/19/18 16:03 Uric Acid 7.8 mg/dL (3.5-7.2) H 09/18/18 05:23 Calcium 7.7 mg/dL (8.5-10.1) L 09/19/18 05:34 Corrected Calcium 9.5 mg/dL (8.5-10.1) 09/19/18 05:34 Magnesium 1.7 mg/dL (1.7-2.9) 09/18/18 05:23 Iron 32 ug/dL (50-175) L 09/17/18 05:25 Transferrin 136 mg/dL (202-364) L 09/17/18 05:25 Ferritin 142 ng/mL (26-388) 09/17/18 05:25 Total Bilirubin 0.30 mg/dL (0.2-1.0) 09/19/18 05:34 AST 13 Units/L (15-37) L 09/19/18 05:34 ALT 11 Units/L (12-78) L 09/19/18 05:34 Alkaline Phosphatase 81 Units/L (46-116) 09/19/18 05:34 Creatine Kinase 101 Units/L (39-308) 09/16/18 18:43 CK-MB (CK-2) 3.3 ng/mL (0-4.0) 09/16/18 18:43 CK/CKMB % Calc 3.3 % (<4) 09/16/18 18:43 Troponin I < 0.02 ng/mL (0-1.5) 09/16/18 18:43 Total Protein 5.2 g/dL (6.4-8.2) L 09/19/18 05:34 Albumin 1.7 g/dL (3.4-5.0) L 09/19/18 05:34 Globulin 3.5 g/dL (2.5-4.5) 09/19/18 05:34 Albumin/Globulin Ratio 0.5 Ratio (1.1-2.1) L 09/19/18 05:34 Vitamin B12 362 pg/mL (193-986) 09/17/18 05:25 Folate 4.3 ng/mL (>8.6) L 09/17/18 05:25 Specimen Type Catherized urine 09/16/18 18:42 Urine Color Pale yellow (YELLOW) 09/16/18 18:42 Urine Appearance Slightly hazy (CLEAR) 09/16/18 18:42 Urine pH 5.0 (5.0 - 8.0) 09/16/18 18:42 Ur Specific [place] 1.010 (1.000-1.030) 09/16/18 18:42 Urine Protein 4+ (NEGATIVE) 09/16/18 18:42 Urine Glucose (UA) 4+ (NEGATIVE) 09/16/18 18:42 Urine Ketones Negative (NEGATIVE) 09/16/18 18:42 Urine Occult Blood 2+ (NEGATIVE) 09/16/18 18:42 Urine Nitrite Negative (NEGATIVE) 09/16/18 18:42 Urine Bilirubin Negative (NEGATIVE) 09/16/18 18:42 Urine Urobilinogen Normal (NORMAL) 09/16/18 18:42 Ur Leukocyte Esterase Negative (NEGATIVE) 09/16/18 18:42 Urine RBC 5-10 /HPF (NONE SEEN) 09/16/18 18:42 Urine WBC 0-2 /HPF (NONE SEEN) 09/16/18 18:42 Ur Squamous Epith Cells Few /HPF (NEGATIVE) 09/16/18 18:42 Amorphous Sediment 3+ /HPF (NEGATIVE) 09/16/18 18:42 Urine Bacteria Trace /HPF (NEGATIVE) 09/16/18 18:42 Ur Culture Indicated? No/not indicated 09/16/18 18:42 Stool Description Fob tube 09/17/18 15:00 Stl Occult Blood (IFOB) Negative (NEGATIVE) 09/17/18 15:00 Acetone, Semi-Quant Negative (NEGATIVE) 09/16/18 18:43 - Plan (1) Acute renal failure Status: Acute Qualifiers: Acute renal failure type: unspecified Qualified Code(s): N17.9 - Acute kidney failure, unspecified Plan: CONTINUOUS CARDIAC MONITORING. STRICT I & O. BP MONITORING, AM CHEST XRAY. SSI, IV HYDRATION, MOULTON CATH. NORMAL SALINE WITH 2 AMPS BICARB IN EACH LITER IV FLUIDS (2) Anemia Status: Acute Qualifiers: Anemia type: iron deficiency Iron deficiency anemia type: unspecified iron deficiency Qualified Code(s): D50.9 - Iron deficiency anemia, unspecified Plan: OCCULT STOOL, CONTINUE TO MONITOR (3) Hyperglycemia Status: Acute Plan: MONITOR OTBS, SSI
[2018-09-19] MEDS: SNACK - Diabetic Appropriate PO SCH (20:00)
[2018-09-19] MEDS: HYTRIN PO SCH (20:22)
[2018-09-19] MEDS: NORVASC TAB 5 MG PO SCH (20:22)
[2018-09-19] MEDS: ZOCOR TAB 40 MG PO SCH (20:22)
[2018-09-20] MEDS: NS 1000 ML 1,000 ML with SODIUM BICARBONATE 8.4% INJ ADULT 100 ML IV SCH ×4 (00:09→14:03)
[2018-09-20 05:55] LABS: BASOPHILS # (AUTO) 0.1 X10^3/uL (0.0-0.1); BASOPHILS % (AUTO) 0.7 % (0.2-1.0); EOSINOPHILS # (AUTO) 0.2 x10^3/uL (0.0-0.2); HEMATOCRIT 26.4 % (42.0-54.0); HEMOGLOBIN 8.8 g/dL (13.5-18.0); LYMPHOCYTES # (AUTO) 0.9 X10^3/uL (1.3-2.9); LYMPHOCYTES % (AUTO) 9.1 % (21.0-51.0); MEAN CORPUSCULAR HEMOGLOBIN 29.1 pg (27.0-34.0); MEAN CORPUSCULAR HGB CONC 33.4 g/dL (33.0-35.0); MEAN CORPUSCULAR VOLUME 87.1 fL (80.0-100.0); MEAN PLATELET VOLUME 8.7 fL (7.4-11.0); MONOCYTES # (AUTO) 1.3 x10^3/uL (0.3-0.8); MONOCYTES % (AUTO) 12.9 % (0.0-13.0); NEUTROPHILS # (AUTO) 7.6 x10^3/uL (2.2-4.8); NEUTROPHILS % (AUTO) 75.3 % (42.0-75.0); PLATELET COUNT 236 X10^3/uL (150.0-450.0); RED BLOOD COUNT 3.03 X10^6/uL (4.7-6.0)
[2018-09-20] MEDS: HumuLIN R SUBCUT SCH ×4 (06:00→20:47)
[2018-09-20 06:18] LABS: ALBUMIN 1.6 g/dL (3.4-5.0); CALCIUM 7.6 mg/dL (8.5-10.1); CARBON DIOXIDE 18.4 mmol/L (21-32); COR CA(FOR HYPOALB) 9.5 mg/dL (8.5-10.1); CREATININE 5.64 mg/dL (0.70-1.30)
[2018-09-20 06:41] LABS: ABG HCO3 17.8 mmol/L (22-26)
--- NOTE | 2018-09-20 08:13 | RAD ---
HISTORY: Shortness of breath Study: Single-view chest, done portably Comparison: 09/16/2018. Findings: Trachea is midline. Heart size is normal. Lungs and pleural spaces are clear. No infiltrate, CHF, pleural fluid or pneumothorax is seen. Osseous structures are intact. IMPRESSION: No acute cardiopulmonary disease. Reported By:
[2018-09-20] MEDS: ROCEPHIN VIAL 1 GRAM IVP SCH (09:51)
[2018-09-20] MEDS: LOVENOX INJ 30 MG SYR SC SCH (09:52)
[2018-09-20] MEDS ORDERED: PHARMACY CONSULT - DOSE _____ XX SCH (10:00)
[2018-09-20] MEDS: VOLTAREN 1 % GEL MULTI DOSE TUBE TOP SCH ×3 (11:38→22:00)
[2018-09-20] MEDS: NORCO 10/325 TAB PO PRN (11:41)
--- NOTE | 2018-09-20 19:23 | PCM.PROG ---
Progress Note - Progress Note for Day of Date of Exam: 09/20/18 - Subjective Subjective: MR. WARNER IS A 72 WM, PATIENT OF . HE WAS ADMITTED ON 09/16 WITH ACUTE RENAL FAILURE, HYPERGLYCEMIA, METABOLIC ACIDOSIS, HYPONATREMIA. PT HAS PMH OF DM, NO HX OF CAD RO RENAL DISEASE. PT HAS MOULTON CATH WITH STRICT I& OS. PT RECEIVING NORMAL SALINE WITH 2 AMPS OF BICARB IN EACH LITER AT 100 ML/HR WITH NO IMPROVEMENT IN BUN/CREATININE. HE IS ALERT AND ORIENTED ON MORNING ROUNDS. HE REPORTS GENERALIZED WEAKNESS AND PAIN TO BILATERAL KNEES. ON EXAMINATION, HEART IS REGULAR IN RATE AND RHYTHM. BILATERAL LUNGS ARE CLEAR TO AUSCULTATION. ABDOMEN IS ROUND, SOFT, AND NON-TENDER WITH NORMAL BOWEL SOUNDS NOTED IN ALL QUADRANTS. HE IS NOTED WITH A TEMPERATURE OF 100.6 THIS MORNING, OTHERWISE, VITALS ARE STABLE. ABNORMAL LAB VALUES INCLUDE THE FOLLOWING: RBC 3.03, HGB 8.8, HCT 26.4, CARBON DIXOIDE 18.4, BUN 62, CREATININE 5.64, GLUCOSE 318, CALCIUM 7.6, AST 14. TODAY WE WILL CONTINUE WITH IV HYDRATION. WE WILL START VOLTAREN GEL TID FOR KNEE PAIN AND HAVE PHARMACY CALCULATE A RENAL DOSE OF LEVEMIR. OTHERWISE, WE WILL REPEAT AM LABS AND CONTINUE SSI AND BLOOD SUGAR CONTROL. - Past Medical Family Social History Past Med/Fam/Surg Hx: No changes since H&P Allergies: Allergies No Known Drug Allergies Allergy (Verified 09/16/18 17:53) - Review of Systems ROS: No change since H&P - Vital Signs and I&O's Vital Signs: Temperature 99.2 F Pulse Rate [Apical] 82 Pulse Rate 92 Respiratory Rate 17 Blood Pressure [Left Arm] 197/87 Blood Pressure 164/72 O2 Sat by Pulse Oximetry 94 Intake and Output: Intake & Output 09/18/18 09/19/18 09/20/18 09/21/18 11:59 11:59 11:59 11:59 Intake Total 3113 / 3113 2921 / 2921 5193 / 5193 2446 / 2446 Output Total 2700 / 2700 2900 / 2900 1950 / 1950 1000 / 1000 Balance 413 / 413 21 / 21 3243 / 3243 1446 / 1446 - Physical Exam Oriented: Normal Eyes: Normal Ear: Normal Nose: Normal Throat: Normal Respiratory: Normal Cardiovascular: Normal, Edema (+ 2 LE EDEMA, BILATERAL) : Normal Auscultation: Bowel Sounds: Bruit Palpation: Normal Tenderness: Normal Skin: Normal, Decreased Turgur Musculoskeletal: Right, Left, Knee, Tender Psychiatric: Anxiety Affect: Anxious Speech Pattern: Clear, Appropriate - Laboratory and Diagnostics Result Diagrams: 09/20/18 05:20 09/20/18 05:20 Labs: 09/16/18 18:48 Blood Blood Culture - Preliminary 09/16/18 18:43 Blood Blood Culture - Preliminary Laboratory WBC 10.0 X10^3/uL (3.6-10.0) 09/20/18 05:20 RBC 3.03 X10^6/uL (4.7-6.0) L 09/20/18 05:20 Hgb 8.8 g/dL (13.5-18.0) L 09/20/18 05:20 Hct 26.4 % (42.0-54.0) L 09/20/18 05:20 MCV 87.1 fL (80.0-100.0) 09/20/18 05:20 MCH 29.1 pg (27.0-34.0) 09/20/18 05:20 MCHC 33.4 g/dL (33.0-35.0) 09/20/18 05:20 RDW 14.0 % (11.6-16.5) 09/20/18 05:20 Plt Count 236 X10^3/uL (150.0-450.0) 09/20/18 05:20 MPV 8.7 fL (7.4-11.0) 09/20/18 05:20 Neut % (Auto) 75.3 % (42.0-75.0) H 09/20/18 05:20 Lymph % (Auto) 9.1 % (21.0-51.0) L 09/20/18 05:20 [place] % (Auto) 12.9 % (0.0-13.0) 09/20/18 05:20 Eos % (Auto) 2.0 % (0.9-2.9) 09/20/18 05:20 Baso % (Auto) 0.7 % (0.2-1.0) 09/20/18 05:20 Neut # (Auto) 7.6 x10^3/uL (2.2-4.8) H 09/20/18 05:20 Lymph # (Auto) 0.9 X10^3/uL (1.3-2.9) L 09/20/18 05:20 [place] # (Auto) 1.3 x10^3/uL (0.3-0.8) H 09/20/18 05:20 Eos # (Auto) 0.2 x10^3/uL (0.0-0.2) 09/20/18 05:20 Baso # (Auto) 0.1 X10^3/uL (0.0-0.1) 09/20/18 05:20 Absolute Nucleated RBC 0.0 /100WBC 09/20/18 05:20 Sample Site Rbra 09/20/18 06:38 ABG pH 7.340 (7.35-7.45) L 09/20/18 06:38 ABG pCO2 33.0 mmHg (35.0-45.0) L 09/20/18 06:38 ABG pO2 67.0 mmHg (80.0-100.0) L 09/20/18 06:38 ABG HCO3 17.8 mmol/L (22-26) L* 09/20/18 06:38 ABG O2 Saturation 92.0 % (90-100) 09/20/18 06:38 ABG Base Excess -7.0 mmol/L (-2.0-2.0) L 09/20/18 06:38 Chuck Test Na 09/20/18 06:38 A-a Gradient 41.0 mmHg 09/20/18 06:38 FiO2 21.0 09/20/18 06:38 Blood Gas Comments Luís abg well-mtf 09/20/18 06:38 Sodium 136 mmol/L (136-145) 09/20/18 05:20 Corrected Sodium 141 mmol/L (136-145) 09/20/18 05:20 Potassium 3.9 mmol/L (3.5-5.1) 09/20/18 05:20 Chloride 104 mmol/L (98-107) 09/20/18 05:20 Carbon Dioxide 18.4 mmol/L (21-32) L 09/20/18 05:20 BUN 62 mg/dL (7-18) H 09/20/18 05:20 Creatinine 5.64 mg/dL (0.70-1.30) H 09/20/18 05:20 Est GFR (MDRD) Af Amer 13 (>60) L 09/20/18 05:20 Est GFR (MDRD) Non-Af 11 (>60) L 09/20/18 05:20 Glucose 318 mg/dL (65-99) H 09/20/18 05:20 POC Glucose (mg/dL) 336 mg/dL (65-99) H 09/20/18 17:04 Uric Acid 7.8 mg/dL (3.5-7.2) H 09/18/18 05:23 Calcium 7.6 mg/dL (8.5-10.1) L 09/20/18 05:20 Corrected Calcium 9.5 mg/dL (8.5-10.1) 09/20/18 05:20 Magnesium 1.7 mg/dL (1.7-2.9) 09/18/18 05:23 Iron 32 ug/dL (50-175) L 09/17/18 05:25 Transferrin 136 mg/dL (202-364) L 09/17/18 05:25 Ferritin 142 ng/mL (26-388) 09/17/18 05:25 Total Bilirubin 0.30 mg/dL (0.2-1.0) 09/20/18 05:20 AST 14 Units/L (15-37) L 09/20/18 05:20 ALT 14 Units/L (12-78) 09/20/18 05:20 Alkaline Phosphatase 78 Units/L (46-116) 09/20/18 05:20 Creatine Kinase 101 Units/L (39-308) 09/16/18 18:43 CK-MB (CK-2) 3.3 ng/mL (0-4.0) 09/16/18 18:43 CK/CKMB % Calc 3.3 % (<4) 09/16/18 18:43 Troponin I < 0.02 ng/mL (0-1.5) 09/16/18 18:43 Total Protein 5.0 g/dL (6.4-8.2) L 09/20/18 05:20 Albumin 1.6 g/dL (3.4-5.0) L 09/20/18 05:20 Globulin 3.4 g/dL (2.5-4.5) 09/20/18 05:20 Albumin/Globulin Ratio 0.5 Ratio (1.1-2.1) L 09/20/18 05:20 Vitamin B12 362 pg/mL (193-986) 09/17/18 05:25 Folate 4.3 ng/mL (>8.6) L 09/17/18 05:25 Specimen Type Catherized urine 09/16/18 18:42 Urine Color Pale yellow (YELLOW) 09/16/18 18:42 Urine Appearance Slightly hazy (CLEAR) 09/16/18 18:42 Urine pH 5.0 (5.0 - 8.0) 09/16/18 18:42 Ur Specific [place] 1.010 (1.000-1.030) 09/16/18 18:42 Urine Protein 4+ (NEGATIVE) 09/16/18 18:42 Urine Glucose (UA) 4+ (NEGATIVE) 09/16/18 18:42 Urine Ketones Negative (NEGATIVE) 09/16/18 18:42 Urine Occult Blood 2+ (NEGATIVE) 09/16/18 18:42 Urine Nitrite Negative (NEGATIVE) 09/16/18 18:42 Urine Bilirubin Negative (NEGATIVE) 09/16/18 18:42 Urine Urobilinogen Normal (NORMAL) 09/16/18 18:42 Ur Leukocyte Esterase Negative (NEGATIVE) 09/16/18 18:42 Urine RBC 5-10 /HPF (NONE SEEN) 09/16/18 18:42 Urine WBC 0-2 /HPF (NONE SEEN) 09/16/18 18:42 Ur Squamous Epith Cells Few /HPF (NEGATIVE) 09/16/18 18:42 Amorphous Sediment 3+ /HPF (NEGATIVE) 09/16/18 18:42 Urine Bacteria Trace /HPF (NEGATIVE) 09/16/18 18:42 Ur Culture Indicated? No/not indicated 09/16/18 18:42 Stool Description Fob tube 09/17/18 15:00 Stl Occult Blood (IFOB) Negative (NEGATIVE) 09/17/18 15:00 Acetone, Semi-Quant Negative (NEGATIVE) 09/16/18 18:43 - Plan (1) Acute renal failure Status: Acute Qualifiers: Acute renal failure type: unspecified Qualified Code(s): N17.9 - Acute kidney failure, unspecified Plan: CONTINUOUS CARDIAC MONITORING. STRICT I & O. BP MONITORING, AM CHEST XRAY. SSI, IV HYDRATION, MOULTON CATH. NORMAL SALINE WITH 2 AMPS BICARB IN EACH LITER IV FLUIDS (2) Anemia Status: Acute Qualifiers: Anemia type: iron deficiency Iron deficiency anemia type: unspecified iron deficiency Qualified Code(s): D50.9 - Iron deficiency anemia, unspecified Plan: OCCULT STOOL, CONTINUE TO MONITOR (3) Hyperglycemia Status: Acute Plan: MONITOR OTBS, SSI
[2018-09-20] MEDS: SNACK - Diabetic Appropriate PO SCH (20:00)
[2018-09-20] MEDS: HYTRIN PO SCH (20:55)
[2018-09-20] MEDS: NORVASC TAB 5 MG PO SCH (20:55)
[2018-09-20] MEDS: ZOCOR TAB 40 MG PO SCH (20:56)
[2018-09-20] MEDS: ZOFRAN INJ 4 MG VIAL IVP PRN (20:59)
[2018-09-20] MEDS ORDERED: LEVEMIR SC SCH (21:00)
[2018-09-21] MEDS: NORCO 10/325 TAB PO PRN ×3 (02:14→20:50)
[2018-09-21] MEDS: NS 1000 ML 1,000 ML with SODIUM BICARBONATE 8.4% INJ ADULT 100 ML IV SCH ×2 (03:00)
[2018-09-21] MEDS: VOLTAREN 1 % GEL MULTI DOSE TUBE TOP SCH ×3 (05:49→21:09)
[2018-09-21] MEDS: HumuLIN R SUBCUT SCH ×2 (05:49→11:40)
--- NOTE | 2018-09-21 06:11 | RAD ---
HISTORY: 72-year-old male with shortness of breath. Study: Frontal view of the chest. Comparison: Chest radiograph 09/20/2018 Findings: The trachea is midline. The cardiac silhouette is stable with continued prominence perihilar lung markings and interstitium with low lung volumes. The lungs are clear without focal consolidation, effusion or pneumothorax. Soft tissues are unremarkable. Osseous structures are unremarkable. IMPRESSION: 1. Findings consistent with COPD, correlate clinically. Reported By:
[2018-09-21 06:34] LABS: BASOPHILS # (AUTO) 0.1 X10^3/uL (0.0-0.1); BASOPHILS % (AUTO) 0.5 % (0.2-1.0); EOSINOPHILS # (AUTO) 0.2 x10^3/uL (0.0-0.2); EOSINOPHILS % (AUTO) 2.2 % (0.9-2.9); HEMATOCRIT 25.8 % (42.0-54.0); HEMOGLOBIN 8.7 g/dL (13.5-18.0); LYMPHOCYTES % (AUTO) 9.5 % (21.0-51.0); MEAN CORPUSCULAR HEMOGLOBIN 28.8 pg (27.0-34.0); MEAN CORPUSCULAR HGB CONC 33.5 g/dL (33.0-35.0); MEAN CORPUSCULAR VOLUME 85.9 fL (80.0-100.0); MEAN PLATELET VOLUME 8.5 fL (7.4-11.0); MONOCYTES # (AUTO) 1.4 x10^3/uL (0.3-0.8); MONOCYTES % (AUTO) 12.4 % (0.0-13.0); NEUTROPHILS # (AUTO) 8.3 x10^3/uL (2.2-4.8); NEUTROPHILS % (AUTO) 75.4 % (42.0-75.0); PLATELET COUNT 252 X10^3/uL (150.0-450.0); RED CELL DISTRIBUTION WIDTH 13.3 % (11.6-16.5)
[2018-09-21 06:44] LABS: ALBUMIN 1.5 g/dL (3.4-5.0); CALCIUM 7.7 mg/dL (8.5-10.1); CARBON DIOXIDE 23.7 mmol/L (21-32); COR CA(FOR HYPOALB) 9.7 mg/dL (8.5-10.1); CREATININE 5.31 mg/dL (0.70-1.30); TOTAL PROTEIN 5.4 g/dL (6.4-8.2)
[2018-09-21] MEDS: LOVENOX INJ 30 MG SYR SC SCH (09:20)
[2018-09-21] MEDS: ROCEPHIN VIAL 1 GRAM IVP SCH (09:21)
[2018-09-21] MEDS ORDERED: PHARMACY CONSULT - DOSE _____ XX SCH (10:00)
[2018-09-21] MEDS: PROTONIX INJ 40 MG VIAL IVP SCH (11:45)
[2018-09-21] MEDS ORDERED: NS 1/2 1000 ML IV 1,000 ML IV ONE (12:06)
[2018-09-21] MEDS: ZOFRAN INJ 4 MG VIAL IVP PRN ×2 (12:50→20:55)
[2018-09-21] MEDS: NS 1/2 1000 ML IV 1,000 ML IV SCH (13:16)
--- NOTE | 2018-09-21 14:51 | RAD ---
HISTORY: Pain and edema. No history of trauma. Study: Left elbow: Three views Comparison: None Findings: A small joint effusion is noted. The radial head is intact. Minimal olecranon spurring is noted. There is [id number] irregularity of the lateral epicondyle with several small calcifications there are well corticated in this area. This most likely is due to prior trauma or epicondylitis. No acute bony abnormalities are identified. There appears to be moderate soft tissue edema along the forearm and distal upper extremity. Mild vascular calcification is noted. IMPRESSION: 1. Small joint effusion. 2. No acute bony abnormalities are identified. 3. Soft tissue edema. Reported By:
--- NOTE | 2018-09-21 14:53 | RAD ---
HISTORY: Pain and edema. No history of trauma. Study: Left wrist: Three views. I do not have a true lateral. Comparison: None Findings: Mild osteopenia is noted. Carpal, metacarpal and phalangeal alignment is normal. Early degenerative changes noted in the scaphotrapezium articulation with mild in the 1st carpal metacarpal joint. Mild vascular calcification is noted. No acute bony abnormalities are identified. IMPRESSION: 1. Degenerative change in the left wrist as described above. 2. No acute bony abnormalities are identified given limitations as described above. Reported By:
[2018-09-21] MEDS: SNACK - Diabetic Appropriate PO SCH (20:00)
[2018-09-21] MEDS: ZOCOR TAB 40 MG PO SCH (20:50)
[2018-09-21] MEDS: HYTRIN PO SCH (20:50)
[2018-09-21] MEDS: NORVASC TAB 5 MG PO SCH (20:50)
[2018-09-21] MEDS ORDERED: LEVEMIR SC SCH (21:00)
[2018-09-22] MEDS ORDERED: NS 1/2 1000 ML IV 1,000 ML IV ONE ×2 (01:40→20:11)
[2018-09-22] MEDS: NS 1/2 1000 ML IV 1,000 ML IV SCH ×3 (01:42→21:30)
[2018-09-22] MEDS: HumuLIN R SUBCUT PRN ×4 (05:25→21:17)
[2018-09-22] MEDS: VOLTAREN 1 % GEL MULTI DOSE TUBE TOP SCH ×3 (05:43→21:20)
[2018-09-22 06:16] LABS: BASOPHILS # (AUTO) 0.1 X10^3/uL (0.0-0.1); BASOPHILS % (AUTO) 0.5 % (0.2-1.0); EOSINOPHILS # (AUTO) 0.2 x10^3/uL (0.0-0.2); EOSINOPHILS % (AUTO) 1.3 % (0.9-2.9); HEMATOCRIT 24.3 % (42.0-54.0); HEMOGLOBIN 8.1 g/dL (13.5-18.0); LYMPHOCYTES # (AUTO) 1.1 X10^3/uL (1.3-2.9); LYMPHOCYTES % (AUTO) 9.3 % (21.0-51.0); MEAN CORPUSCULAR HEMOGLOBIN 28.8 pg (27.0-34.0); MEAN CORPUSCULAR HGB CONC 33.4 g/dL (33.0-35.0); MEAN CORPUSCULAR VOLUME 86.4 fL (80.0-100.0); MEAN PLATELET VOLUME 8.8 fL (7.4-11.0); MONOCYTES # (AUTO) 1.5 x10^3/uL (0.3-0.8); MONOCYTES % (AUTO) 12.9 % (0.0-13.0); PLATELET COUNT 244 X10^3/uL (150.0-450.0); RED BLOOD COUNT 2.82 X10^6/uL (4.7-6.0); RED CELL DISTRIBUTION WIDTH 13.5 % (11.6-16.5); WHITE BLOOD COUNT 11.9 X10^3/uL (3.6-10.0)
--- NOTE | 2018-09-22 06:32 | RAD ---
HISTORY: Shortness of breath Study: Chest AP portable Comparison: September 21, 2018, September 20, 2018 Findings: The heart is upper limits normal in size. The ruby are normal. The lungs are well inflated and free of acute alveolar infiltrates. No pleural effusions are identified. The bony thorax is unremarkable. IMPRESSION: No infiltrates Reported By:
[2018-09-22 07:08] LABS: ALBUMIN 1.4 g/dL (3.4-5.0); CALCIUM 7.4 mg/dL (8.5-10.1); CARBON DIOXIDE 22.8 mmol/L (21-32); COR CA(FOR HYPOALB) 9.5 mg/dL (8.5-10.1); CREATININE 5.47 mg/dL (0.70-1.30); TOTAL PROTEIN 5.1 g/dL (6.4-8.2)
[2018-09-22] MEDS: PROTONIX INJ 40 MG VIAL IVP SCH (08:37)
[2018-09-22] MEDS: ROCEPHIN VIAL 1 GRAM IVP SCH (08:37)
[2018-09-22] MEDS: LOVENOX INJ 30 MG SYR SC SCH (08:37)
[2018-09-22 08:55] LABS: ABG BASE EXCESS -1.5 mmol/L (-2.0-2.0); ABG HCO3 24.3 mmol/L (22-26)
[2018-09-22 09:49] LABS: FREE T4 (FREE THYROXINE) 0.86 ng/dL (0.76-1.46); TSH (3RD GENERATION) 6.948 uIU/mL (0.358-3.74)
[2018-09-22] MEDS ORDERED: PHARMACY CONSULT - DOSE _____ XX SCH (10:00)
[2018-09-22] MEDS: SYNTHROID 150 mcg TAB PO SCH (11:00)
[2018-09-22] MEDS: NORCO 10/325 TAB PO PRN (11:55)
--- NOTE | 2018-09-22 14:06 | RAD ---
HISTORY: Abdominal pain and vomiting. Study: Abdominal series with frontal chest Comparison: CT scan of the abdomen done 04/18/2017 and chest x-ray done 09/22/2018. Technique: KUB upright views the abdomen provided as well as a frontal view of the chest. Findings: The trachea is midline. Heart size is upper normal. Improved aeration is noted bilaterally with some clearing of interstitial densities seen on the prior image. No consolidation, pleural fluid or pneumothorax is seen. Osseous structures are intact. There is a large amount of stool present involving the right colon. Mild gaseous distention of small bowel loops is present. Findings may represent a small bowel ileus. No evidence of rectal fecal impaction, obstruction or perforation is seen. There is no evidence of free intraperitoneal air or fluid. No opaque stone is seen. Osseous structures are intact IMPRESSION: Improved aeration involving both lungs with reduction in interstitial densities bilaterally. Large amount of stool in the right colon. There is a very mild small bowel ileus pattern without bowel obstruction perforation. Reported By:
--- NOTE | 2018-09-22 18:39 | CT ---
STUDY: CT ABDOMEN AND PELVIS WITHOUT IV AND ORAL CONTRAST HISTORY: Nausea, vomiting, diarrhea. Fever. Elevated white blood cell count. ARF. Dehydration. Hyperglycemia. Comparison: Prior CT examination from April 18, 2017. Technique: Multiple axial images of the abdomen and pelvis were obtained from the lung bases to the pubic symphysis without the administration of IV contrast. Findings: There bilateral pleural effusions. There is atelectasis and/or focal airspace opacity in both lower lobes. CT abdomen: The liver, gallbladder, spleen, pancreas and adrenal glands are normal in appearance. No significant mesenteric lymphadenopathy or inflammatory stranding is appreciated. There is a probable exophytic cyst measuring 3.8 cm in the right kidney. There is bilateral renal atrophy. There is no evidence of hydronephrosis on either side. The stomach is normal in appearance. The small bowel is normal in appearance, without evidence of bowel wall thickening or small bowel obstruction. The terminal ileum and cecum are normal. The appendix is normal in appearance. There is no evidence of right lower quadrant fat stranding. The ascending and transverse colon are within normal limits. The descending colon is normal in appearance. CT pelvis: There are multiple diverticuli in the sigmoid colon. The rectum is normal. The urinary bladder is nondistended and contains a [place] catheter. No abnormal fluid collections are identified in the pelvis. There is no evidence of acute osseous abnormality. IMPRESSION: 1. Small bilateral pleural effusions with compressive atelectasis and/or airspace disease in both lower lobes. 2. Stable appearance of exophytic cyst off the right kidney. 3. Bilateral renal atrophy. 4. Diverticulosis, without evidence of diverticulitis. Reported By:
[2018-09-22] MEDS: SNACK - Diabetic Appropriate PO SCH (20:00)
[2018-09-22] MEDS: HYTRIN PO SCH (21:12)
[2018-09-22] MEDS: NORVASC TAB 5 MG PO SCH (21:14)
[2018-09-22] MEDS: ZOCOR TAB 40 MG PO SCH (21:15)
[2018-09-22] MEDS: LEVEMIR SC SCH (21:16)
[2018-09-23] MEDS: ZOFRAN INJ 4 MG VIAL IVP PRN (00:48)
[2018-09-23] MEDS: HumuLIN R SUBCUT PRN ×2 (05:59→18:28)
[2018-09-23] MEDS: VOLTAREN 1 % GEL MULTI DOSE TUBE TOP SCH ×3 (05:59→21:23)
[2018-09-23 06:10] LABS: BASOPHILS % (AUTO) 0.4 % (0.2-1.0); EOSINOPHILS # (AUTO) 0.3 x10^3/uL (0.0-0.2); EOSINOPHILS % (AUTO) 2.8 % (0.9-2.9); HEMATOCRIT 23.7 % (42.0-54.0); HEMOGLOBIN 8.1 g/dL (13.5-18.0); LYMPHOCYTES % (AUTO) 10.2 % (21.0-51.0); MEAN CORPUSCULAR HEMOGLOBIN 29.1 pg (27.0-34.0); MEAN CORPUSCULAR HGB CONC 34.1 g/dL (33.0-35.0); MEAN CORPUSCULAR VOLUME 85.4 fL (80.0-100.0); MEAN PLATELET VOLUME 8.2 fL (7.4-11.0); MONOCYTES # (AUTO) 1.3 x10^3/uL (0.3-0.8); MONOCYTES % (AUTO) 12.8 % (0.0-13.0); NEUTROPHILS # (AUTO) 7.3 x10^3/uL (2.2-4.8); NEUTROPHILS % (AUTO) 73.8 % (42.0-75.0); PLATELET COUNT 255 X10^3/uL (150.0-450.0); RED BLOOD COUNT 2.78 X10^6/uL (4.7-6.0); RED CELL DISTRIBUTION WIDTH 13.5 % (11.6-16.5); WHITE BLOOD COUNT 9.9 X10^3/uL (3.6-10.0)
[2018-09-23 06:29] LABS: ALBUMIN 1.4 g/dL (3.4-5.0); CALCIUM 7.6 mg/dL (8.5-10.1); CARBON DIOXIDE 23.8 mmol/L (21-32); COR CA(FOR HYPOALB) 9.7 mg/dL (8.5-10.1); CREATININE 5.68 mg/dL (0.70-1.30); TOTAL PROTEIN 5.3 g/dL (6.4-8.2)
[2018-09-23] MEDS: NORCO 10/325 TAB PO PRN ×2 (07:57→15:43)
[2018-09-23] MEDS: LOVENOX INJ 30 MG SYR SC SCH (08:16)
[2018-09-23] MEDS: FORTAZ or TAZICEF VIAL INJ IVP SCH (08:16)
[2018-09-23] MEDS: SYNTHROID 150 mcg TAB PO SCH (08:16)
[2018-09-23] MEDS: PROTONIX INJ 40 MG VIAL IVP SCH (08:16)
[2018-09-23] MEDS ORDERED: DULCOLAX SUPPOSITORY 10 MG RECTAL ONE (11:31)
[2018-09-23] MEDS: NS 1/2 1000 ML IV 1,000 ML IV SCH ×3 (11:32→23:30)
[2018-09-23] MEDS ORDERED: NS 1/2 1000 ML IV 1,000 ML IV ONE (14:40)
[2018-09-23] MEDS: SNACK - Diabetic Appropriate PO SCH (20:00)
[2018-09-23] MEDS: HYTRIN PO SCH (20:38)
[2018-09-23] MEDS: NORVASC TAB 5 MG PO SCH (20:38)
[2018-09-23] MEDS: ZOCOR TAB 40 MG PO SCH (20:38)
[2018-09-23] MEDS: LEVEMIR SC SCH (20:40)
[2018-09-24] MEDS: VOLTAREN 1 % GEL MULTI DOSE TUBE TOP SCH (06:09)
[2018-09-24 06:36] LABS: BASOPHILS % (AUTO) 0.4 % (0.2-1.0); EOSINOPHILS # (AUTO) 0.2 x10^3/uL (0.0-0.2); EOSINOPHILS % (AUTO) 1.8 % (0.9-2.9); HEMATOCRIT 22.7 % (42.0-54.0); HEMOGLOBIN 7.9 g/dL (13.5-18.0); LYMPHOCYTES % (AUTO) 10.5 % (21.0-51.0); MEAN CORPUSCULAR HEMOGLOBIN 29.6 pg (27.0-34.0); MEAN CORPUSCULAR HGB CONC 34.6 g/dL (33.0-35.0); MEAN CORPUSCULAR VOLUME 85.4 fL (80.0-100.0); MEAN PLATELET VOLUME 8.4 fL (7.4-11.0); MONOCYTES # (AUTO) 1.2 x10^3/uL (0.3-0.8); MONOCYTES % (AUTO) 11.6 % (0.0-13.0); NEUTROPHILS # (AUTO) 7.5 x10^3/uL (2.2-4.8); NEUTROPHILS % (AUTO) 75.7 % (42.0-75.0); PLATELET COUNT 268 X10^3/uL (150.0-450.0); RED BLOOD COUNT 2.66 X10^6/uL (4.7-6.0); RED CELL DISTRIBUTION WIDTH 13.4 % (11.6-16.5); WHITE BLOOD COUNT 9.9 X10^3/uL (3.6-10.0)
[2018-09-24 06:48] LABS: CARBON DIOXIDE 23.5 mmol/L (21-32)
[2018-09-24 06:56] LABS: PLATELET MORPHOLOGY COMMENT NORMAL (NORMAL)
[2018-09-24 07:34] LABS: ALBUMIN 1.3 g/dL (3.4-5.0); CALCIUM 7.7 mg/dL (8.5-10.1); COR CA(FOR HYPOALB) 9.9 mg/dL (8.5-10.1); CREATININE 5.96 mg/dL (0.70-1.30); TOTAL PROTEIN 5.3 g/dL (6.4-8.2)
[2018-09-24] MEDS: PROTONIX INJ 40 MG VIAL IVP SCH (08:21)
[2018-09-24] MEDS: LOVENOX INJ 30 MG SYR SC SCH (08:21)
[2018-09-24] MEDS: FORTAZ or TAZICEF VIAL INJ IVP SCH (08:21)
[2018-09-24] MEDS: SYNTHROID 150 mcg TAB PO SCH (08:22)
[2018-09-24 10:42] VITALS: BP 180/82
== END 2018-09-24 13:50 | disposition home or self-care (01) | DRG 683 ==
LOC: ICU 17:28
PROVIDERS: ADMIT Internal Medicine; ATTEND Internal Medicine
DX: E11.65 Type 2 diabetes mellitus with hyperglycemia; N17.8 Other acute kidney failure; R60.0 Localized edema; I16.0 Hypertensive urgency; E87.1 Hypo-osmolality and hyponatremia; N28.1 Cyst of kidney, acquired; E86.0 Dehydration; I12.9 Hypertensive chronic kidney disease with stage 1 through stage 4 chronic kidney disease, or unspecified chronic kidney disease; D50.8 Other iron deficiency anemias
CPT/HCPCS: 36415; 36600; 71010; 71045; 73070; 73100; 73560; 74022; 74176; 76770; 80053; 81001; 82009; 82270; 82550; 82553; 82607; 82728; 82746; 82803; 83540; 83605; 83735; 84439; 84443; 84466; 84484; 84550; 85025; 87040; 87045; 87427; 87449; 87493; 87502; 87899; 93005; 97116; 97162; 97530; A4222; C9113; J0360; J0696; J0713; J1650; J1815; J2405; J3475; J3490; J7030

== ENCOUNTER 2018-10-23 07:46 | Inpatient (IN) ==
--- NOTE | 2018-10-23 08:09 | CT ---
HISTORY: Altered mental status Study: CT head without contrast Comparison: None Technique: Axial noncontrast images with coronal and sagittal reformats. Dose reduction procedures were used with mA/kv adjusted for body size. Findings: The ventricles are normal in size, shape, and position. There is slight decreased attenuation in the periventricular white matter suggestive of small vessel vascular disease. There is no definite evidence for recent or remote CVA, hemorrhage, mass lesion, or extra-axial fluid collection. The visualized sinuses are clear. The calvarium is intact. IMPRESSION: No acute intracranial abnormality Mild Reported By:
--- NOTE | 2018-10-23 08:19 | RAD ---
HISTORY: Altered mental status Study: Chest AP portable Comparison: 09/22/2018 Findings: The heart is mildly enlarged. No congestive heart failure is noted. The lungs are mildly hypo inflated but free of acute infiltrates. No pleural effusions are identified. The bony thorax is unremarkable. IMPRESSION: Mild cardiomegaly without congestive heart failure Lungs Reported By:
[2018-10-23 08:30] LABS: BASOPHILS # (AUTO) 0.1 X10^3/uL (0.0-0.1); BASOPHILS % (AUTO) 0.8 % (0.2-1.0); EOSINOPHILS # (AUTO) 0.2 x10^3/uL (0.0-0.2); EOSINOPHILS % (AUTO) 2.7 % (0.9-2.9); HEMATOCRIT 25.7 % (42.0-54.0); HEMOGLOBIN 8.4 g/dL (13.5-18.0); LYMPHOCYTES # (AUTO) 0.9 X10^3/uL (1.3-2.9); LYMPHOCYTES % (AUTO) 12.4 % (21.0-51.0); MEAN CORPUSCULAR HEMOGLOBIN 28.6 pg (27.0-34.0); MEAN CORPUSCULAR HGB CONC 32.8 g/dL (33.0-35.0); MEAN CORPUSCULAR VOLUME 87.2 fL (80.0-100.0); MEAN PLATELET VOLUME 7.2 fL (7.4-11.0); MONOCYTES # (AUTO) 0.7 x10^3/uL (0.3-0.8); MONOCYTES % (AUTO) 10.1 % (0.0-13.0); NEUTROPHILS # (AUTO) 5.4 x10^3/uL (2.2-4.8); PLATELET COUNT 363 X10^3/uL (150.0-450.0); RED BLOOD COUNT 2.95 X10^6/uL (4.7-6.0); RED CELL DISTRIBUTION WIDTH 15.2 % (11.6-16.5); WHITE BLOOD COUNT 7.2 X10^3/uL (3.6-10.0)
[2018-10-23 08:34] LABS: BLOOD UREA NITROGEN 76 mg/dL (7-18); CALCIUM 8.1 mg/dL (8.5-10.1); CARBON DIOXIDE 20.2 mmol/L (21-32); CHLORIDE 108 mmol/L (98-107); CREATININE 7.35 mg/dL (0.70-1.30); SODIUM 143 mmol/L (136-145); TROPONIN I < 0.02 ng/mL (0-1.5); eGFR NON BLACK RACES 8 (>60)
--- NOTE | 2018-10-23 08:45 | DR.AMS ---
HPI Time Seen Time Seen by Provider: 10/23/18 08:22 PCP Primary Care Physician: ABELARDO MENDOZA Complaint Cheif Complaint Doctors Comments: Patient reports that he is being followed by the for his abnormal renfunction Chief Complaint:: SPOUSE STATES THAT PT. HAS BEEN SLEEPING A LOT LATELY WHICH IS UNUSUAL FOR HIM. SHE REPORTS THAT HE STARTED BECOMING DISORIENTED LAST NIGHT PRIOR TO GOING TO BED. UPON AWAKENING THIS MORNING, PT. COULD NOT RECALL THE YEAR OR THAT HER PARENTS WERE . PT. ALSO HAD A FALL. SKIN TEAR NOTED TO RIGHT AND LEFT UPPER ARM. Source History Provided: Patient and Family Member Mode of Arrival Mode of Arrival: Wheelchair Timing Onset of Chief Complaint: 10/22/18 PMH PMH Past Medical History: Yes Past Medical History: Diabetes, Gout, Hypertension, Kidney Stones and Renal Disease Past Surgical History: No Surgical History: No History Family History History of Family Medical Conditions: Yes Family Medical History: Coronary Artery Disease and Hypertension Social History Does patient currently use any type of tobacco product: No Have you used tobacco products in the last 12 months: No Type of Tobacco Use: None Does any household member use tobacco: No Alcohol Use: None Do you use any recreational Drugs:: No Lives With: Spouse Lives Where: Home infectious screening In the last 2 months have you had wt loss of >10#?: NO Have you had fever, night sweats or hemotysis?: No Have you traveled outside the country in the last 6 months?: No Isolation: Standard PE Vitals Vital Signs: Temp Pulse Pulse Resp BP BP Pulse Ox 10/23/18 10:30 82 20 205/89 95 10/23/18 10:00 109 H 22 204/96 94 L 10/23/18 09:37 89 17 189/88 96 10/23/18 09:30 91 H 16 194/90 94 L 10/23/18 09:00 92 H 16 202/93 94 L 10/23/18 08:28 86 16 201/88 95 10/23/18 07:48 98.1 F 96 H 18 213/91 97 09/24/18 10:00 180/82 09/16/18 18:00 197/87 General Limitations: No Limitations General Appearance: Alert and In No Apparent Distress Head Head Exam: Normal Inspection, Atraumatic and Normocephalic Eyes Eye exam: Normal Appearance, PERRL and EOMI Pupils: Regular, Round: Bilateral ENT ENT Exam: Normal Exam, Normal Oropharynx, Normal External Ear Exam, Mucous Membranes Moist, Mucous Membranes Dry and TM's Normal Bilaterally External Ear Exam: Normal External Inspection TM/Canal Exam: Bilateral: Normal Nose Exam: Normal Nose Exam Mouth Exam: Normal Inspection and Drooling Throat Exam: Normal Inspection Neck Neck Exam: Normal Inspection Chest Chest Inspection: Normal Inspection Respiratory Respiratory Exam: Bilateral: Clear to Auscultation Cardiovascular Cardiovascular Exam: Regular Rate and Normal Rhythm Abdominal Exam Abdominal Exam: Normal Inspection and Normal Bowel Sounds Extremities Extremities Exam: Full ROM Back Back Exam: Normal Inspection and Full ROM Neurological Neurological Exam: Alert, Oriented X3 and CN II-XII Intact Patient Oriented To: Person Cranial Nerve Exam: EOM Function (II, III, IV, ): Normal Cerebellar Function: Finger to Nose: Normal Cerebellar Function: Normal Gait Motor Strength - LUE: 4/5 Motor Strength - RUE: 4/5 Motor Strength - LLE: 4/5 Psychological Psychiatric Exam: Normal Affect and Depressed Expanded Psychiatric Exam: Poor Eye Contact Skin Skin Exam: Warm, Dry and Intact (right elbow with a superficial laceration "L shped) COURSE Consultation Called: 09:50 Consultation Comments: Dr. Oviedo agreed to admit for further evaluation and treatment ROR Labs Reviewed Laboratory Results Reviewed?: Yes Result Diagrams: 10/23/18 08:05 10/23/18 08:05 Laboratory: WBC 7.2 X10^3/uL (3.6-10.0) 10/23/18 08:05 RBC 2.95 X10^6/uL (4.7-6.0) L 10/23/18 08:05 Hgb 8.4 g/dL (13.5-18.0) L 10/23/18 08:05 Hct 25.7 % (42.0-54.0) L 10/23/18 08:05 MCV 87.2 fL (80.0-100.0) 10/23/18 08:05 MCH 28.6 pg (27.0-34.0) 10/23/18 08:05 MCHC 32.8 g/dL (33.0-35.0) L 10/23/18 08:05 RDW 15.2 % (11.6-16.5) 10/23/18 08:05 Plt Count 363 X10^3/uL (150.0-450.0) 10/23/18 08:05 MPV 7.2 fL (7.4-11.0) L 10/23/18 08:05 Neut % (Auto) 74.0 % (42.0-75.0) 10/23/18 08:05 Lymph % (Auto) 12.4 % (21.0-51.0) L 10/23/18 08:05 [place] % (Auto) 10.1 % (0.0-13.0) 10/23/18 08:05 Eos % (Auto) 2.7 % (0.9-2.9) 10/23/18 08:05 Baso % (Auto) 0.8 % (0.2-1.0) 10/23/18 08:05 Neut # (Auto) 5.4 x10^3/uL (2.2-4.8) H 10/23/18 08:05 Lymph # (Auto) 0.9 X10^3/uL (1.3-2.9) L 10/23/18 08:05 [place] # (Auto) 0.7 x10^3/uL (0.3-0.8) 10/23/18 08:05 Eos # (Auto) 0.2 x10^3/uL (0.0-0.2) 10/23/18 08:05 Baso # (Auto) 0.1 X10^3/uL (0.0-0.1) 10/23/18 08:05 Absolute Nucleated RBC 0.1 /100WBC 10/23/18 08:05 INR Target Range - 10/23/18 08:05 INR 1.12 (0.8-1.3) 10/23/18 08:05 APTT 45.5 SECONDS (22.9-36.5) H 10/23/18 08:05 PTT Comment - 10/23/18 08:05 Sodium 143 mmol/L (136-145) 10/23/18 08:05 Corrected Sodium TNP 10/23/18 08:05 Potassium 4.6 mmol/L (3.5-5.1) 10/23/18 08:05 Chloride 108 mmol/L (98-107) H 10/23/18 08:05 Carbon Dioxide 20.2 mmol/L (21-32) L 10/23/18 08:05 BUN 76 mg/dL (7-18) H 10/23/18 08:05 Creatinine 7.35 mg/dL (0.70-1.30) H 10/23/18 08:05 Est GFR (MDRD) Af Amer 9 (>60) L 10/23/18 08:05 Est GFR (MDRD) Non-Af 8 (>60) L 10/23/18 08:05 Glucose 83 mg/dL (65-99) 10/23/18 08:05 Calcium 8.1 mg/dL (8.5-10.1) L 10/23/18 08:05 Corrected Calcium 9.5 mg/dL (8.5-10.1) 10/23/18 08:05 Total Bilirubin 0.20 mg/dL (0.2-1.0) 10/23/18 08:05 AST 25 Units/L (15-37) 10/23/18 08:05 ALT 15 Units/L (12-78) 10/23/18 08:05 Alkaline Phosphatase 128 Units/L (46-116) H 10/23/18 08:05 Creatine Kinase 153 Units/L (39-308) 10/23/18 08:05 CK-MB (CK-2) 4.3 ng/mL (0-4.0) H* 10/23/18 08:05 CK/CKMB % Calc 2.8 % (<4) 10/23/18 08:05 Troponin I < 0.02 ng/mL (0-1.5) 10/23/18 08:05 Total Protein 6.6 g/dL (6.4-8.2) 10/23/18 08:05 Albumin 2.2 g/dL (3.4-5.0) L 10/23/18 08:05 Globulin 4.4 g/dL (2.5-4.5) 10/23/18 08:05 Albumin/Globulin Ratio 0.5 Ratio (1.1-2.1) L 10/23/18 08:05 Other Results Comments: CT Brain: No acute intracranial abnormality. Chest: Cardiomegaly w/o CHF XRAY XRAY Interpreted by: Radiologist Diagnosis Discharge Problem: Metabolic acidosis Renal failure Qualifiers: Renal failure chronicity: chronic Chronic kidney disease stage: unspecified stage Qualified Code(s): N18.9 - Chronic kidney disease, unspecified
[2018-10-23] MEDS ORDERED: CATAPRES TAB 0.1 MG PO ONE ×2 (09:04→10:36)
[2018-10-23] MEDS ORDERED: CATAPRES TAB 0.1 MG ONE ×2 (09:05→10:37)
[2018-10-23 09:07] LABS: ALANINE AMINOTRANSFERASE 15 Units/L (12-78); ALBUMIN 2.2 g/dL (3.4-5.0); ALKALINE PHOSPHATASE 128 Units/L (46-116); ASPARTATE AMINO TRANSFERASE 25 Units/L (15-37); CKMB % 2.8 % (<4); COR CA(FOR HYPOALB) 9.5 mg/dL (8.5-10.1); CREATINE KINASE 153 Units/L (39-308); TOTAL PROTEIN 6.6 g/dL (6.4-8.2)
[2018-10-23 09:22] LABS: CREATINE KINASE MB 4.3 ng/mL (0-4.0)
[2018-10-23] MEDS ORDERED: ZESTRIL TAB 10 MG PO ONE (10:37)
[2018-10-23] MEDS: NS 1000 ML 1,000 ML IV SCH ×3 (10:52→19:11)
[2018-10-23] MEDS: LASIX IVP SCH ×2 (10:53→20:25)
[2018-10-23] MEDS ORDERED: ARTIFICIAL TEARS DROPS OP PRN (11:15)
[2018-10-23] MEDS ORDERED: PHENERGAN TAB 25 MG PO PRN (11:15)
[2018-10-23 11:38] VITALS: BMI 31.8
[2018-10-23] MEDS: ASPIRIN EC 81 MG PO SCH (11:52)
[2018-10-23] MEDS: LIPITOR TAB 40 MG PO SCH (11:53)
[2018-10-23] MEDS: HYDROCHLOROTHIAZIDE 25 MG TAB PO SCH (11:53)
[2018-10-23] MEDS: SYNTHROID 150 mcg TAB PO SCH (11:53)
[2018-10-23] MEDS: VITAMIN D3 PO SCH (11:53)
[2018-10-23 13:22] LABS: BILIRUBIN,URINE NEGATIVE (NEGATIVE); BLOOD/HEMOGLOBIN,URINE 2+ (NEGATIVE); GLUCOSE, URINE NEGATIVE (NEGATIVE); KETONES,URINE NEGATIVE (NEGATIVE); LEUKOCYTE ESTERASE ,URINE NEGATIVE (NEGATIVE); NITRITES,URINE NEGATIVE (NEGATIVE); PROTEIN,URINE 4+ (NEGATIVE); UROBILINOGEN,URINE NORMAL (NORMAL)
[2018-10-23 13:24] LABS: APPEARANCE,URINE CLEAR (CLEAR); COLOR,URINE STRAW (YELLOW)
[2018-10-23 13:30] LABS: BACTERIA,URINE NEGATIVE /HPF (NEGATIVE); RBC,URINE 0-2 /HPF (NONE SEEN); SQUAMOUS EPITHELIAL CELL,UR RARE /HPF (NEGATIVE)
[2018-10-23] MEDS ORDERED: D50W ABBOJECT SYR IV ONE (16:17)
[2018-10-23] MEDS ORDERED: D50W ABBOJECT SYR ONE (16:25)
[2018-10-23 19:33] LABS: BLOOD UREA NITROGEN 75 mg/dL (7-18); CARBON DIOXIDE 20.6 mmol/L (21-32); CHLORIDE 108 mmol/L (98-107); CREATININE 6.97 mg/dL (0.70-1.30); SODIUM 141 mmol/L (136-145); eGFR NON BLACK RACES 8 (>60)
[2018-10-23] MEDS: REQUIP PO SCH (20:24)
[2018-10-23] MEDS: FLOMAX PO SCH (20:24)
[2018-10-23] MEDS: NORVASC TAB 5 MG PO SCH (20:24)
[2018-10-23] MEDS: FLEXERIL TAB 10 MG PO SCH (20:25)
[2018-10-23] MEDS ORDERED: CATAPRES TAB 0.1 MG PO PRN (22:05)
[2018-10-23 22:41] LABS: CALCIUM 7.9 mg/dL (8.5-10.1); CARBON DIOXIDE 21.6 mmol/L (21-32); CREATININE 6.95 mg/dL (0.70-1.30)
[2018-10-24 02:11] LABS: CALCIUM 7.8 mg/dL (8.5-10.1); CREATININE 6.9 mg/dL (0.70-1.30)
[2018-10-24] MEDS: NS 1000 ML 1,000 ML IV SCH ×4 (02:32→21:22)
[2018-10-24] MEDS ORDERED: LASIX IVP SCH ×2 (05:00→06:30)
[2018-10-24 05:46] LABS: BLOOD UREA NITROGEN 71 mg/dL (7-18); CALCIUM 7.8 mg/dL (8.5-10.1); CARBON DIOXIDE 20.9 mmol/L (21-32); CHLORIDE 110 mmol/L (98-107); CREATININE 6.86 mg/dL (0.70-1.30); SODIUM 142 mmol/L (136-145); eGFR NON BLACK RACES 8 (>60)
[2018-10-24 06:29] LABS: BASOPHILS # (AUTO) 0.1 X10^3/uL (0.0-0.1); BASOPHILS % (AUTO) 1.4 % (0.2-1.0); EOSINOPHILS # (AUTO) 0.4 x10^3/uL (0.0-0.2); EOSINOPHILS % (AUTO) 7.6 % (0.9-2.9); LYMPHOCYTES # (AUTO) 1.7 X10^3/uL (1.3-2.9); LYMPHOCYTES % (AUTO) 30.7 % (21.0-51.0); MEAN CORPUSCULAR HGB CONC 33.6 g/dL (33.0-35.0); MEAN CORPUSCULAR VOLUME 86.3 fL (80.0-100.0); MEAN PLATELET VOLUME 7.2 fL (7.4-11.0); MONOCYTES # (AUTO) 0.6 x10^3/uL (0.3-0.8); MONOCYTES % (AUTO) 11.2 % (0.0-13.0); NEUTROPHILS # (AUTO) 2.7 x10^3/uL (2.2-4.8); NEUTROPHILS % (AUTO) 49.1 % (42.0-75.0); PLATELET COUNT 299 X10^3/uL (150.0-450.0); RED BLOOD COUNT 2.43 X10^6/uL (4.7-6.0); RED CELL DISTRIBUTION WIDTH 14.8 % (11.6-16.5); WHITE BLOOD COUNT 5.5 X10^3/uL (3.6-10.0)
[2018-10-24 06:42] LABS: ANISOCYTOSIS SLIGHT; HYPOCHROMASIA 1+; PLATELET MORPHOLOGY COMMENT NORMAL (NORMAL)
[2018-10-24] MEDS: ASPIRIN EC 81 MG PO SCH (08:51)
[2018-10-24] MEDS: HYDROCHLOROTHIAZIDE 25 MG TAB PO SCH (08:51)
[2018-10-24] MEDS: SYNTHROID 150 mcg TAB PO SCH (08:52)
[2018-10-24] MEDS: ZESTRIL TAB 10 MG PO SCH (08:52)
[2018-10-24] MEDS: SODIUM BICARBONATE TAB 650MG PO SCH (08:52)
[2018-10-24] MEDS: VITAMIN D3 PO SCH (08:52)
[2018-10-24] MEDS: LIPITOR TAB 40 MG PO SCH (08:52)
[2018-10-24 10:19] LABS: CALCIUM 7.8 mg/dL (8.5-10.1); CREATININE 6.87 mg/dL (0.70-1.30)
[2018-10-24 10:39] LABS: LACTIC ACID 0.3 mmol/L (0.4-2.0)
--- NOTE | 2018-10-24 12:13 | DR.H&P ---
H&P - History & Physical for Day of: H&P Date: 10/23/18 - Chief Complaint Chief Complaint: AMS - History of Present Illness History of Present Illness: 72 WM ER ADMISSION AFTER FAMILY PRESENTED WITH CO SPOUSE STATES THAT PT. HAS BEEN SLEEPING A LOT LATELY WHICH IS UNUSUAL FOR HIM. SHE REPORTS THAT HE STARTED BECOMING DISORIENTED LAST NIGHT PRIOR TO GOING TO BED. UPON AWAKENING THIS MORNING, PT. COULD NOT RECALL THE YEAR OR THAT HER PARENTS WERE . PT. ALSO HAD A FALL. SKIN TEAR NOTED TO RIGHT AND LEFT UPPER ARM. PT HAS HX OF CHRONIC RENAL FAILURE, HAS BEEN SEEN BY REGISTERED RESPIRATORY THERAPIST AT [facility] WITH "PENDING TESTS". PT HAS HTN, DM AND OA. PT ADMITTED FOR TREATMENT OF ACUTE ILLNESS, ACUTE ON CHRONIC RENAL FAILURE. AMS R/O CVA, HYPERTENSIVE URGENCY. - Past Medical History Past Medical History: Arthritis, Diabetes, GERD, Gout, Hypertension, Kidney Stones, Renal Disease Additional Medical History: BPH - Past Surgical History Surgical History: No History - Family History Family Medical History: Coronary Artery Disease, Hypertension - Social History Does patient currently use any type of tobacco product: No Have you used tobacco products in the last 12 months: No Type of Tobacco Use: None Does any household member use tobacco: No Alcohol Use: None Drug Use: None - Medications Home Medications: No Known Drug Allergies Allergy (Verified 10/23/18 07:47) CONTINUE taking the following medications colchicine 0.6 mg PO BID 10/23/18 [History] hydralazine 10 mg PO BID 10/23/18 [History] lisinopril 10 mg PO DAILY 10/23/18 [History] promethazine 25 mg PO Q6HR PRN 10/23/18 [History] - Review of Systems Eyes: No Symptoms Reported ENT: No Symptoms Reported Respiratory: Shortness of Breath Cardiovascular: Edema Gastrointestinal: No Symptoms Reported Genitourinary: No Symptoms Reported Musculoskeletal: Leg Pain, Foot Pain Skin: Bruising Neurological: Weakness, Confusion - Physical Exam Vital Signs: Temperature 98.8 F Pulse Rate [Apical] 82 Pulse Rate 76 Respiratory Rate 20 Blood Pressure [Left Arm] 163/72 Blood Pressure 165/79 O2 Sat by Pulse Oximetry 97 Oriented: Person Eyes: Normal Ear: Normal Nose: Normal Throat: Normal Respiratory: RLL Diminished, LLL Diminished Cardiovascular: Normal : Normal Auscultation: Bowel Sounds: Normal Palpation: Normal Tenderness: Normal Skin: Decreased Turgur Musculoskeletal: Right, Left, Knee, Ankle Mood Description: Calm Speech Pattern: Clear, Appropriate - Assessment/Plan (1) Acute on chronic renal failure Status: Acute Plan: ADMIT ICU, GENTLE IV HYDRATION. STRICT I & OS WITH MOULTON CATH. CXR AND CT HEAD ON ADMISSION. BS CONTROL, BP MONITORING. VERIFY HOME MEDICATION (2) Metabolic acidosis Status: Acute (3) Hypertensive urgency Status: Acute - Allergies Allergies/Adverse Reactions: Allergies Allergy/AdvReac Type Severity Reaction Status Date / Time No Known Drug Allergies Allergy Verified 10/23/18 07:47
[2018-10-24 12:53] LABS: ABG ALLEN TEST POS; ABG BASE EXCESS -3.8 mmol/L (-2.0-2.0); ABG HCO3 20.7 mmol/L (22-26)
--- NOTE | 2018-10-24 14:24 | RAD ---
xamin Left knee, two views History: None provided Findings: There is narrowing of the medial compartment. No definite fracture or dislocation or synovial effusion. Extensive vascular calcification is present. Impression: Medial compartment osteoarthritis. Arteriosclerosis. Reported By:
--- NOTE | 2018-10-24 14:25 | RAD ---
Examination: Right ankle, three views History: None available Findings: There is no evidence for fracture or dislocation or asymmetry of the joint space. There is partial ossification of the distal interosseous ligament. Extensive vascular calcification is present. Impression: No acute osseous abnormality demonstrated. Reported By:
[2018-10-24] MEDS: APRESOLINE INJ 20 MG VIAL IVP PRN (18:22)
[2018-10-24] MEDS: SNACK - Diabetic Appropriate PO SCH (20:18)
[2018-10-24] MEDS: FLEXERIL TAB 10 MG PO SCH (21:22)
[2018-10-24] MEDS: NORVASC TAB 5 MG PO SCH (21:23)
[2018-10-24] MEDS: FLOMAX PO SCH (21:23)
[2018-10-24] MEDS: REQUIP PO SCH (21:23)
[2018-10-25] MEDS: NS 1000 ML 1,000 ML IV SCH ×4 (04:13→20:46)
[2018-10-25 05:56] LABS: BASOPHILS # (AUTO) 0.1 X10^3/uL (0.0-0.1); BASOPHILS % (AUTO) 1.2 % (0.2-1.0); EOSINOPHILS # (AUTO) 0.5 x10^3/uL (0.0-0.2); EOSINOPHILS % (AUTO) 7.1 % (0.9-2.9); HEMATOCRIT 24.5 % (42.0-54.0); LYMPHOCYTES # (AUTO) 1.3 X10^3/uL (1.3-2.9); LYMPHOCYTES % (AUTO) 19.1 % (21.0-51.0); MEAN CORPUSCULAR HEMOGLOBIN 28.2 pg (27.0-34.0); MEAN CORPUSCULAR HGB CONC 32.8 g/dL (33.0-35.0); MEAN PLATELET VOLUME 7.4 fL (7.4-11.0); MONOCYTES # (AUTO) 0.7 x10^3/uL (0.3-0.8); MONOCYTES % (AUTO) 9.7 % (0.0-13.0); NEUTROPHILS # (AUTO) 4.3 x10^3/uL (2.2-4.8); NEUTROPHILS % (AUTO) 62.9 % (42.0-75.0); PLATELET COUNT 342 X10^3/uL (150.0-450.0); RED BLOOD COUNT 2.85 X10^6/uL (4.7-6.0); RED CELL DISTRIBUTION WIDTH 14.7 % (11.6-16.5); WHITE BLOOD COUNT 6.9 X10^3/uL (3.6-10.0)
[2018-10-25 06:10] LABS: ALBUMIN 1.8 g/dL (3.4-5.0); CALCIUM 7.9 mg/dL (8.5-10.1); CARBON DIOXIDE 18.6 mmol/L (21-32); COR CA(FOR HYPOALB) 9.7 mg/dL (8.5-10.1); CREATININE 6.72 mg/dL (0.70-1.30); TOTAL PROTEIN 5.8 g/dL (6.4-8.2); URIC ACID 8.5 mg/dL (3.5-7.2)
[2018-10-25] MEDS: LIPITOR TAB 40 MG PO SCH (08:39)
[2018-10-25] MEDS: SYNTHROID 150 mcg TAB PO SCH (08:40)
[2018-10-25] MEDS: ZESTRIL TAB 10 MG PO SCH (08:40)
[2018-10-25] MEDS: ASPIRIN EC 81 MG PO SCH (08:40)
[2018-10-25] MEDS: SODIUM BICARBONATE TAB 650MG PO SCH (08:40)
[2018-10-25] MEDS: VITAMIN D3 PO SCH (08:40)
[2018-10-25] MEDS: HYDROCHLOROTHIAZIDE 25 MG TAB PO SCH (08:41)
[2018-10-25] MEDS: APRESOLINE INJ 20 MG VIAL IVP PRN (18:19)
[2018-10-25] MEDS: COZAAR PO SCH (20:43)
[2018-10-25] MEDS: CATAPRES TAB 0.1 MG PO SCH (20:44)
[2018-10-25] MEDS: REQUIP PO SCH (20:44)
[2018-10-25] MEDS: FLEXERIL TAB 10 MG PO SCH (20:44)
[2018-10-25] MEDS: FLOMAX PO SCH (20:44)
[2018-10-25] MEDS: SNACK - Diabetic Appropriate PO SCH (20:46)
[2018-10-26] MEDS: NS 1000 ML 1,000 ML IV SCH (03:53)
[2018-10-26 06:06] LABS: ALBUMIN 1.7 g/dL (3.4-5.0); CALCIUM 7.8 mg/dL (8.5-10.1); CARBON DIOXIDE 17.4 mmol/L (21-32); COR CA(FOR HYPOALB) 9.6 mg/dL (8.5-10.1); CREATININE 6.47 mg/dL (0.70-1.30); TOTAL PROTEIN 5.6 g/dL (6.4-8.2)
[2018-10-26 06:08] LABS: BASOPHILS # (AUTO) 0.1 X10^3/uL (0.0-0.1); BASOPHILS % (AUTO) 1.3 % (0.2-1.0); EOSINOPHILS # (AUTO) 0.3 x10^3/uL (0.0-0.2); EOSINOPHILS % (AUTO) 4.9 % (0.9-2.9); HEMATOCRIT 23.7 % (42.0-54.0); HEMOGLOBIN 7.9 g/dL (13.5-18.0); LYMPHOCYTES % (AUTO) 13.9 % (21.0-51.0); MEAN CORPUSCULAR HEMOGLOBIN 28.9 pg (27.0-34.0); MEAN CORPUSCULAR HGB CONC 33.5 g/dL (33.0-35.0); MEAN CORPUSCULAR VOLUME 86.2 fL (80.0-100.0); MEAN PLATELET VOLUME 7.1 fL (7.4-11.0); MONOCYTES # (AUTO) 0.7 x10^3/uL (0.3-0.8); MONOCYTES % (AUTO) 10.1 % (0.0-13.0); NEUTROPHILS # (AUTO) 4.9 x10^3/uL (2.2-4.8); NEUTROPHILS % (AUTO) 69.8 % (42.0-75.0); PLATELET COUNT 335 X10^3/uL (150.0-450.0); RED BLOOD COUNT 2.75 X10^6/uL (4.7-6.0); RED CELL DISTRIBUTION WIDTH 14.4 % (11.6-16.5); WHITE BLOOD COUNT 7.1 X10^3/uL (3.6-10.0)
[2018-10-26 06:59] LABS: HYPOCHROMASIA SLIGHT; MICROCYTOSIS SLIGHT; PLATELET MORPHOLOGY COMMENT NORMAL (NORMAL)
[2018-10-26] MEDS: COZAAR PO SCH (09:02)
[2018-10-26] MEDS ORDERED: TUSSIONEX PENNKINETIC SUSP PO ONE (09:18)
[2018-10-26] MEDS: LIPITOR TAB 40 MG PO SCH (09:27)
[2018-10-26] MEDS: ASPIRIN EC 81 MG PO SCH (09:27)
[2018-10-26] MEDS: CATAPRES TAB 0.1 MG PO SCH (09:28)
[2018-10-26] MEDS: SODIUM BICARBONATE TAB 650MG PO SCH (09:28)
[2018-10-26] MEDS: SYNTHROID 150 mcg TAB PO SCH (09:28)
[2018-10-26] MEDS: VITAMIN D3 PO SCH (09:28)
[2018-10-26] MEDS: HYDROCHLOROTHIAZIDE 25 MG TAB PO SCH (09:28)
[2018-10-26] MEDS ORDERED: PULMICORT NEB TX 0.5 MG NEB SCH (09:30)
[2018-10-26] MEDS ORDERED: ROCEPHIN VIAL 1 GRAM IVP SCH (09:30)
[2018-10-26] MEDS ORDERED: FLONASE NASAL SPRAY ENOSTRIL SCH (10:00)
[2018-10-26 11:25] VITALS: BP 159/70
[2018-10-26] MEDS ORDERED: HumuLIN R SUBCUT PRN (11:45)
== END 2018-10-26 12:30 | disposition home or self-care (01) | DRG 683 ==
LOC: ER 07:46 → ICU 10:22
PROVIDERS: ADMIT Internal Medicine; ATTEND Internal Medicine
DX: M25.571 Pain in right ankle and joints of right foot; E87.2 Acidosis; I13.10 Hypertensive heart and chronic kidney disease without heart failure, with stage 1 through stage 4 chronic kidney disease, or unspecified chronic kidney disease; R79.1 Abnormal coagulation profile; N17.8 Other acute kidney failure; I16.0 Hypertensive urgency; E11.65 Type 2 diabetes mellitus with hyperglycemia; M25.562 Pain in left knee; Z91.81 History of falling; Z79.899 Other long term (current) drug therapy; R41.81 Age-related cognitive decline; N18.9 Chronic kidney disease, unspecified; Y92.89 Other specified places as the place of occurrence of the external cause; W18.39XA Other fall on same level, initial encounter; E11.22 Type 2 diabetes mellitus with diabetic chronic kidney disease
CPT/HCPCS: 36415; 36600; 70450; 71010; 71045; 73560; 73610; 80048; 80053; 81001; 82270; 82550; 82553; 82607; 82728; 82746; 82803; 82947; 83540; 83605; 84466; 84484; 84550; 85025; 85610; 85730; 93005; 96365; 96374; 99231; 99284; A4216; A4222; Q0169; J0360; J0696; J1815; J1940; J3490; J7030

== ENCOUNTER 2018-12-14 02:46 | Observation (INO) ==
--- NOTE | 2018-12-14 03:22 | DR.GENAD ---
HPI Time Seen Time Seen by Provider: 12/14/18 03:21 PCP Primary Care Physician: ARJUN HPI Comment HPI Comment: PATIENT IS 72YR OLD WHITE MALE HISTORY OF HTN AND DIABETES IS IN ED VIA EMS FOR HYPOGLYCEMIC EPISODE. NOT CHANGE IN MENTAL STATUS WHILE PATIENT WAS SITTING ON HIS RECLINER WATCHING TV. EMS CALLED, GLUCOSE CHSCK WAS 24, 1VIAL OF D50 GIVEN IV, IN ED PATIENT FULLY ALERT. HE HAS NO COMPLAINT. DENIES CHEST PAIN, ABDOMINAL PAIN, DYSURIA OR FEVER. HE IS A DIABETIC ON Complaint/Symptoms Chief Complaint:: CALL TO [facility] WAS PT UNRESPONSIVE BUT BREATHING. UPON ARRIVAL PT WAS UNRESPONSIVE WITH A BLOOD SUGAR OF 24 GIVEN 1 AMP D50 BLOOD SUGAR AT 124 PT C/A/O X 4. Nurses notes reviewed Nurses Notes Review: Yes Source History Provided: Patient and EMS Mode of Arrival Mode of Arrival: Stretcher Timing Onset of Chief Complaint: 12/14/18 Came on: Suddenly Duration Duration: Since Onset Duration: Minutes Severity Severity: Mild PMH PMH Past Medical History: Yes Past Medical History: Arthritis, Diabetes, GERD, Gout, Hypertension, Kidney St ones and Renal Disease Past Surgical History: No Surgical History: No History Family History History of Family Medical Conditions: Yes Family Medical History: Coronary Artery Disease and Hypertension Social History Does patient currently use any type of tobacco product: No Have you used tobacco products in the last 12 months: No Does any household member use tobacco: No Alcohol Use: None Do you use any recreational Drugs:: No Lives With: Family Lives Where: Home infectious screening In the last 2 months have you had wt loss of >10#?: NO Have you had fever, night sweats or hemotysis?: No Have you traveled outside the country in the last 6 months?: No Isolation: Standard ROS Review of Systems Constitutional: Weakness and Fatigue; negative Chills and Fever Eyes: No Symptoms Reported; negative Eye Pain, Tearing and Discharge ENTM: No Symptoms Reported; negative Ear Pain, Nose Pain, Nose Discharge, Nose Congestion and Throat Pain Respiratoy: No Symptoms Reported; negative Non-Productive Cough, Short of Breath, Wheezing and Hemoptysis Cardiovascular: Edema and Syncope; negative Chest Pain and Palpitations Gastrointestinal/Abdominal: No Symptoms Reported; negative Abdominal Pain, Constipation, Diarrhea, Nausea and Vomiting Genitourinary: No Symptoms Reported; negative Dysuria, Frequency and Hematuria Neurological: No Symptoms Reported; negative Headache, Seizure, Weakness and Dizziness Musculoskeletal: No Symptoms Reported; negative Back Pain, Muscle Pain and Neck Pain Integumentary: No Symptoms Reported and Dryness; negative Change in Color, Bruises and Juandice Hematologic/Lymphatic: negative Easy Bleeding, Easy Bruising and Swollen Glands Endocrine: negative Increased Thirst, Increased Urine and Decreased Appetite Psychiatric: No Symptoms Reported All Other Systems: Reviewed and Negative PE Vital Signs Vitals: Temperature 98.2 F Pulse Rate [Left] 63 Pulse Rate 88 Respiratory Rate 17 Blood Pressure [Left Arm] 186/77 Blood Pressure 223/95 O2 Sat by Pulse Oximetry 98 General Limitations: No Limitations General Appearance: Alert and In No Apparent Distress; negative In Distress Head Head Exam: Normal Inspection, Atraumatic and Normocephalic Eyes Eye exam: Normal Appearance and PERRL; negative Scleral Icterus and Conjunctival Injection ENT ENT Exam: Normal Exam, Normal Oropharynx, Normal External Ear Exam, Mucous Membranes Moist and TM's Normal Bilaterally External Ear Exam: Normal External Inspection; negative Mastoid Tenderness, Pain with Movement and External Tenderness TM/Canal Exam: Bilateral: Normal Nose Exam: Normal Nose Exam, Sinus Tenderness and Nasal Deviation Mouth Exam: negative Trismus, Lip Swelling and Tongue Swelling Throat Exam: negative Tonsillar Erythema, Tonsillomegaly and Tonsillar Exudate Neck Neck Exam: Normal Inspection, Full ROM and Trachea Midline; negative Tenderness Chest Chest Inspection: Normal Inspection and Symmetric Chest Wall Rise; negative Rash Respiratory Respiratory Exam: Normal Lung Sounds Bilat; negative Chest Wall Tenderness and Respiratory Distress Respiratory Exam: Bilateral: Rhonchi and Lower: Rhonchi Cardiovascular Cardiovascular Exam: Regular Rate and Normal Rhythm; negative Systolic Murmur, Diastolic Murmur, Rubs and Gallop Abdominal Exam Abdominal Exam: Normal Inspection, Normal Bowel Sounds and Soft; negative Organomegaly and Mass Extremities Extremities Exam: Normal Inspection, Normal Capillary Refill and Edema; negative Tenderness and Calf Tenderness Back Back Exam: Normal Inspection; negative Tenderness, Paraspinal Tenderness and Vertebral Tenderness Neurologic Neurological Exam: Alert and Oriented X3; negative Motor Sensory Deficit Psychiatric Psychiatric Exam: Normal Affect and Normal Mood Skin Skin Exam: Warm and Dry; negative Rash and Erythema MDM Additional Information Additional Information Obtained From: Family Differential Diagnosis Differential Diagnosis: HYPOGLYCEMIA, UTI, SEPSIS, DKA, COURSE Treatment Treatment: NORMAL SALINE IN ED. PATIENT GIVEN JUICE WITH SUGAR GLUCOSE STARTED TO DROP. Consultation Consultation Comments: DISCVUSS PATIENT WITH DR. DÍAZ. HE WILL ADMIT. ORDERS FOR ADMIT DONE. Education/Counseling Education/Counseling: Patient and Family Educated On: Diagnosis ROR Labs Reviewed Laboratory Results Reviewed?: Yes Result Diagrams: 12/14/18 03:28 12/14/18 03:28 Laboratory: WBC 7.4 X10^3/uL (3.6-10.0) 12/14/18 03:28 RBC 3.09 X10^6/uL (4.7-6.0) L 12/14/18 03:28 Hgb 9.0 g/dL (13.5-18.0) L 12/14/18 03:28 Hct 27.4 % (42.0-54.0) L 12/14/18 03:28 MCV 88.8 fL (80.0-100.0) 12/14/18 03:28 MCH 29.0 pg (27.0-34.0) 12/14/18 03:28 MCHC 32.7 g/dL (33.0-35.0) L 12/14/18 03:28 RDW 16.0 % (11.6-16.5) 12/14/18 03:28 Plt Count 294 X10^3/uL (150.0-450.0) 12/14/18 03:28 MPV 7.4 fL (7.4-11.0) 12/14/18 03:28 Neut % (Auto) 78.8 % (42.0-75.0) H 12/14/18 03:28 Lymph % (Auto) 12.2 % (21.0-51.0) L 12/14/18 03:28 [place] % (Auto) 6.4 % (0.0-13.0) 12/14/18 03:28 Eos % (Auto) 1.7 % (0.9-2.9) 12/14/18 03:28 Baso % (Auto) 0.9 % (0.2-1.0) 12/14/18 03:28 Neut # (Auto) 5.8 x10^3/uL (2.2-4.8) H 12/14/18 03:28 Lymph # (Auto) 0.9 X10^3/uL (1.3-2.9) L 12/14/18 03:28 [place] # (Auto) 0.5 x10^3/uL (0.3-0.8) 12/14/18 03:28 Eos # (Auto) 0.1 x10^3/uL (0.0-0.2) 12/14/18 03:28 Baso # (Auto) 0.1 X10^3/uL (0.0-0.1) 12/14/18 03:28 Absolute Nucleated RBC 0.0 /100WBC 12/14/18 03:28 Sodium 142 mmol/L (136-145) 12/14/18 03:28 Corrected Sodium TNP 12/14/18 03:28 Potassium 4.7 mmol/L (3.5-5.1) 12/14/18 03:28 Chloride 111 mmol/L (98-107) H 12/14/18 03:28 Carbon Dioxide 16.5 mmol/L (21-32) L 12/14/18 03:28 BUN 96 mg/dL (7-18) H 12/14/18 03:28 Creatinine 7.25 mg/dL (0.70-1.30) H 12/14/18 03:28 Est GFR (MDRD) Af Amer 10 (>60) L 12/14/18 03:28 Est GFR (MDRD) Non-Af 8 (>60) L 12/14/18 03:28 Glucose 87 mg/dL (65-99) 12/14/18 03:28 POC Glucose (mg/dL) 71 mg/dL (65-99) 12/14/18 05:15 Calcium 7.5 mg/dL (8.5-10.1) L 12/14/18 03:28 Corrected Calcium 8.5 mg/dL (8.5-10.1) 12/14/18 03:28 Total Bilirubin 0.20 mg/dL (0.2-1.0) 12/14/18 03:28 AST 17 Units/L (15-37) 12/14/18 03:28 ALT 17 Units/L (12-78) 12/14/18 03:28 Alkaline Phosphatase 67 Units/L (46-116) 12/14/18 03:28 B-Natriuretic Peptide 316 pg/mL (0-79) H 12/14/18 03:28 Total Protein 6.1 g/dL (6.4-8.2) L 12/14/18 03:28 Albumin 2.7 g/dL (3.4-5.0) L 12/14/18 03:28 Globulin 3.4 g/dL (2.5-4.5) 12/14/18 03:28 Albumin/Globulin Ratio 0.8 Ratio (1.1-2.1) L 12/14/18 03:28 Specimen Type Random urine 12/14/18 03:49 Urine Color Pale yellow (YELLOW) 12/14/18 03:49 Urine Appearance Clear (CLEAR) 12/14/18 03:49 Urine pH 5.0 (5.0 - 8.0) 12/14/18 03:49 Ur Specific [place] 1.015 (1.000-1.030) 12/14/18 03:49 Urine Protein 4+ (NEGATIVE) 12/14/18 03:49 Urine Glucose (UA) Negative (NEGATIVE) 12/14/18 03:49 Urine Ketones Negative (NEGATIVE) 12/14/18 03:49 Urine Occult Blood 2+ (NEGATIVE) 12/14/18 03:49 Urine Nitrite Negative (NEGATIVE) 12/14/18 03:49 Urine Bilirubin Negative (NEGATIVE) 12/14/18 03:49 Urine Urobilinogen Normal (NORMAL) 12/14/18 03:49 Ur Leukocyte Esterase Negative (NEGATIVE) 12/14/18 03:49 Urine RBC 0-2 /HPF (NONE SEEN) 12/14/18 03:49 Urine WBC 0-2 /HPF (NONE SEEN) 12/14/18 03:49 Ur Squamous Epith Cells Negative /HPF (NEGATIVE) 12/14/18 03:49 Urine Bacteria Negative /HPF (NEGATIVE) 12/14/18 03:49 Ur Culture Indicated? No/not indicated 12/14/18 03:49
[2018-12-14 03:38] LABS: BASOPHILS # (AUTO) 0.1 X10^3/uL (0.0-0.1); BASOPHILS % (AUTO) 0.9 % (0.2-1.0); EOSINOPHILS # (AUTO) 0.1 x10^3/uL (0.0-0.2); EOSINOPHILS % (AUTO) 1.7 % (0.9-2.9); HEMATOCRIT 27.4 % (42.0-54.0); LYMPHOCYTES # (AUTO) 0.9 X10^3/uL (1.3-2.9); LYMPHOCYTES % (AUTO) 12.2 % (21.0-51.0); MEAN CORPUSCULAR HGB CONC 32.7 g/dL (33.0-35.0); MEAN CORPUSCULAR VOLUME 88.8 fL (80.0-100.0); MEAN PLATELET VOLUME 7.4 fL (7.4-11.0); MONOCYTES # (AUTO) 0.5 x10^3/uL (0.3-0.8); MONOCYTES % (AUTO) 6.4 % (0.0-13.0); NEUTROPHILS # (AUTO) 5.8 x10^3/uL (2.2-4.8); NEUTROPHILS % (AUTO) 78.8 % (42.0-75.0); PLATELET COUNT 294 X10^3/uL (150.0-450.0); RED BLOOD COUNT 3.09 X10^6/uL (4.7-6.0); WHITE BLOOD COUNT 7.4 X10^3/uL (3.6-10.0)
[2018-12-14 03:48] LABS: ALANINE AMINOTRANSFERASE 17 Units/L (12-78); ALBUMIN 2.7 g/dL (3.4-5.0); ALKALINE PHOSPHATASE 67 Units/L (46-116); ASPARTATE AMINO TRANSFERASE 17 Units/L (15-37); BLOOD UREA NITROGEN 96 mg/dL (7-18); CALCIUM 7.5 mg/dL (8.5-10.1); CARBON DIOXIDE 16.5 mmol/L (21-32); CHLORIDE 111 mmol/L (98-107); COR CA(FOR HYPOALB) 8.5 mg/dL (8.5-10.1); CREATININE 7.25 mg/dL (0.70-1.30); SODIUM 142 mmol/L (136-145); TOTAL PROTEIN 6.1 g/dL (6.4-8.2); eGFR NON BLACK RACES 8 (>60)
[2018-12-14 03:56] LABS: BILIRUBIN,URINE NEGATIVE (NEGATIVE); BLOOD/HEMOGLOBIN,URINE 2+ (NEGATIVE); GLUCOSE, URINE NEGATIVE (NEGATIVE); KETONES,URINE NEGATIVE (NEGATIVE); LEUKOCYTE ESTERASE ,URINE NEGATIVE (NEGATIVE); NITRITES,URINE NEGATIVE (NEGATIVE); PROTEIN,URINE 4+ (NEGATIVE); UROBILINOGEN,URINE NORMAL (NORMAL)
[2018-12-14 04:06] LABS: APPEARANCE,URINE CLEAR (CLEAR); BACTERIA,URINE NEGATIVE /HPF (NEGATIVE); COLOR,URINE PALE YELLOW (YELLOW); RBC,URINE 0-2 /HPF (NONE SEEN); SQUAMOUS EPITHELIAL CELL,UR NEGATIVE /HPF (NEGATIVE)
[2018-12-14] MEDS ORDERED: CATAPRES TAB 0.2 MG PO ONE (05:05)
[2018-12-14] MEDS ORDERED: CATAPRES TAB 0.2 MG ONE (05:05)
[2018-12-14] MEDS: NS 1000 ML 1,000 ML IV SCH ×2 (07:02→21:00)
--- NOTE | 2018-12-14 08:40 | RAD ---
HISTORY: Nonresponsive Study: Single view chest Comparison: 10/23/2018 Findings: No infiltrate, effusion or pneumothorax identified. The cardiac and mediastinal contours are within normal limits. The soft tissues are unremarkable. IMPRESSION: 1. No acute cardiopulmonary abnormality. Reported By:
[2018-12-14] MEDS: HYDROCHLOROTHIAZIDE 25 MG TAB PO SCH (10:55)
[2018-12-14] MEDS: COZAAR PO SCH (10:55)
[2018-12-14 11:17] VITALS: BMI 31.2
--- NOTE | 2018-12-14 13:40 | DR.H&P ---
H&P - History & Physical for Day of: H&P Date: 12/14/18 - Chief Complaint Chief Complaint: AMS, HYPOGLYCEMIA - History of Present Illness History of Present Illness: PATIENT IS 72YR OLD WHITE MALE, ER ADMISSION WITH HISTORY OF HTN, END STAGE RENAL FAILURE AND DIABETES IS IN ED VIA EMS FOR HYPOGLYCEMIC EPISODE. NOT CHANGE IN MENTAL STATUS WHILE PATIENT WAS SITTING ON HIS RECLINER WATCHING TV. EMS CALLED, GLUCOSE CHECK WAS 24, 1VIAL OF D50 GIVEN IV, IN ED PATIENT FULLY ALERT. HE HAS NO COMPLAINT. DENIES CHEST PAIN, ABDOMINAL PAIN, DYSURIA OR FEVER. HE IS A DIABETIC ON INSULIN. BS UP TO 87 ON CMP IN ER. PT ADMITED FOR MONITORING, BP CONTROL - Past Medical History Past Medical History: Hypertension, Diabetes, Renal Disease, GERD, Arthritis, Kidney Stones, Gout Additional Medical History: BPH - Past Surgical History Surgical History: No History - Family History Family Medical History: Coronary Artery Disease, Hypertension - Social History Does patient currently use any type of tobacco product: No Have you used tobacco products in the last 12 months: No Does any household member use tobacco: No Alcohol Use: None Drug Use: Prescription Drugs - Medications Home Medications: No Known Drug Allergies Allergy (Verified 10/23/18 07:47) CONTINUE taking the following medications ascorbic acid (vitamin C) 500 mg PO DAILY 12/14/18 [History] ferrous sulfate 324 mg PO QDAY 12/14/18 [History] furosemide 40 mg PO QAM 12/14/18 [History] hydralazine 10 mg PO BID 12/14/18 [History] insulin NPH isoph U-100 human [Novolin N NPH U-100 Insulin] 40 unit SUBCUT BID 12/14/18 [History] potassium chloride 20 meq PO QDAY PRN 12/14/18 [History] - Review of Systems Constitutional: Weakness Eyes: No Symptoms Reported ENT: No Symptoms Reported Respiratory: No Symptoms Reported Cardiovascular: No Symptoms Reported Gastrointestinal: No Symptoms Reported Musculoskeletal: No Symptoms Reported Skin: No Symptoms Reported Neurological: Weakness - Physical Exam Vital Signs: Temperature 97.4 F Pulse Rate [Right Brachial] 58 Pulse Rate [Left] 63 Pulse Rate 88 Respiratory Rate 18 Blood Pressure [Right Arm] 186/77 Blood Pressure [Left Arm] 186/77 Blood Pressure 223/95 O2 Sat by Pulse Oximetry 98 Oriented: Person Eyes: Normal Ear: Normal Nose: Normal Throat: Normal Respiratory: RLL Diminished, LLL Diminished Cardiovascular: Normal, Edema : Normal Auscultation: Bowel Sounds: Normal Palpation: Normal Tenderness: Normal Skin: Normal Musculoskeletal: Right, Left, Leg, Back:Lumbar, Tender Psychiatric: Normal Mood Description: Calm Speech Pattern: Clear, Appropriate - Assessment/Plan (1) Hypoglycemia Status: Acute Plan: ADMIT, BP AND BS CONTROL. GENTLE IV HYDRATION, STRICT I &OS. VERIFY HOME MEDICATION. RESUME 1800 ADA DIET (2) Hypertension Status: Acute (3) Renal failure Status: Acute - Allergies Allergies/Adverse Reactions: Allergies Allergy/AdvReac Type Severity Reaction Status Date / Time No Known Drug Allergies Allergy Verified 10/23/18 07:47
[2018-12-14] MEDS: APRESOLINE TAB 10 MG PO SCH ×2 (14:42→20:52)
[2018-12-14] MEDS: HEMOCYTE-PLUS PO SCH (14:43)
[2018-12-14] MEDS ORDERED: APRESOLINE INJ 20 MG VIAL IVP ONE (18:00)
[2018-12-14] MEDS ORDERED: APRESOLINE INJ 20 MG VIAL ONE (18:07)
[2018-12-14] MEDS: FLOMAX PO SCH (20:51)
[2018-12-14] MEDS: PROTONIX TAB 40 MG PO SCH (20:52)
[2018-12-15 05:56] LABS: BASOPHILS # (AUTO) 0.1 X10^3/uL (0.0-0.1); BASOPHILS % (AUTO) 0.9 % (0.2-1.0); EOSINOPHILS # (AUTO) 0.3 x10^3/uL (0.0-0.2); EOSINOPHILS % (AUTO) 4.7 % (0.9-2.9); HEMOGLOBIN 7.9 g/dL (13.5-18.0); LYMPHOCYTES # (AUTO) 1.8 X10^3/uL (1.3-2.9); LYMPHOCYTES % (AUTO) 28.8 % (21.0-51.0); MEAN CORPUSCULAR HEMOGLOBIN 29.2 pg (27.0-34.0); MEAN CORPUSCULAR HGB CONC 32.9 g/dL (33.0-35.0); MEAN CORPUSCULAR VOLUME 88.9 fL (80.0-100.0); MONOCYTES # (AUTO) 0.5 x10^3/uL (0.3-0.8); MONOCYTES % (AUTO) 7.4 % (0.0-13.0); NEUTROPHILS # (AUTO) 3.6 x10^3/uL (2.2-4.8); NEUTROPHILS % (AUTO) 58.2 % (42.0-75.0); PLATELET COUNT 257 X10^3/uL (150.0-450.0); RED CELL DISTRIBUTION WIDTH 15.6 % (11.6-16.5); WHITE BLOOD COUNT 6.3 X10^3/uL (3.6-10.0)
[2018-12-15 06:07] LABS: ALBUMIN 2.1 g/dL (3.4-5.0); CALCIUM 7.2 mg/dL (8.5-10.1); CARBON DIOXIDE 15.4 mmol/L (21-32); COR CA(FOR HYPOALB) 8.7 mg/dL (8.5-10.1); CREATININE 7.01 mg/dL (0.70-1.30); TOTAL PROTEIN 4.9 g/dL (6.4-8.2)
[2018-12-15] MEDS ORDERED: LASIX IVP ONE (08:19)
[2018-12-15] MEDS ORDERED: KAYEXALATE SUSP PO ONE (08:19)
[2018-12-15] MEDS ORDERED: SODIUM BICARBONATE TAB 650MG PO SCH (09:00)
[2018-12-15] MEDS: COZAAR PO SCH (09:10)
[2018-12-15] MEDS: HEMOCYTE-PLUS PO SCH (09:10)
[2018-12-15] MEDS: APRESOLINE TAB 10 MG PO SCH ×2 (09:10→20:50)
[2018-12-15] MEDS: HYDROCHLOROTHIAZIDE 25 MG TAB PO SCH (09:10)
[2018-12-15] MEDS: NS 1000 ML 1,000 ML IV SCH ×2 (09:15→15:44)
[2018-12-15] MEDS ORDERED: PHARMACY CONSULT - DOSE _____ XX SCH (12:00)
[2018-12-15 13:31] LABS: CALCIUM 7.5 mg/dL (8.5-10.1); CARBON DIOXIDE 15.8 mmol/L (21-32); CREATININE 7.31 mg/dL (0.70-1.30)
[2018-12-15] MEDS: ZOFRAN INJ 4 MG VIAL IVP PRN (13:54)
[2018-12-15] MEDS: HEPARIN SODIUM INJ 5000 UNITS SC SCH ×2 (13:56→21:05)
[2018-12-15] MEDS ORDERED: HEPARIN SODIUM INJ 5000 UNITS SC SCH (14:00)
[2018-12-15] MEDS: SODIUM BICARBONATE TAB 650MG PO SCH ×2 (15:42→16:59)
[2018-12-15] MEDS: KAYEXALATE SUSP PO SCH ×2 (15:42→20:50)
[2018-12-15] MEDS: HumuLIN R SC PRN (20:49)
[2018-12-15] MEDS: PROTONIX TAB 40 MG PO SCH (20:50)
[2018-12-15] MEDS: FLOMAX PO SCH (20:50)
[2018-12-16 05:44] LABS: BASOPHILS # (AUTO) 0.1 X10^3/uL (0.0-0.1); BASOPHILS % (AUTO) 1.3 % (0.2-1.0); EOSINOPHILS # (AUTO) 0.2 x10^3/uL (0.0-0.2); EOSINOPHILS % (AUTO) 4.3 % (0.9-2.9); HEMATOCRIT 22.8 % (42.0-54.0); HEMOGLOBIN 7.5 g/dL (13.5-18.0); LYMPHOCYTES # (AUTO) 1.5 X10^3/uL (1.3-2.9); LYMPHOCYTES % (AUTO) 26.1 % (21.0-51.0); MEAN CORPUSCULAR HEMOGLOBIN 28.9 pg (27.0-34.0); MEAN CORPUSCULAR HGB CONC 32.7 g/dL (33.0-35.0); MEAN CORPUSCULAR VOLUME 88.6 fL (80.0-100.0); MEAN PLATELET VOLUME 7.9 fL (7.4-11.0); MONOCYTES # (AUTO) 0.4 x10^3/uL (0.3-0.8); MONOCYTES % (AUTO) 7.4 % (0.0-13.0); NEUTROPHILS # (AUTO) 3.4 x10^3/uL (2.2-4.8); NEUTROPHILS % (AUTO) 60.9 % (42.0-75.0); PLATELET COUNT 237 X10^3/uL (150.0-450.0); RED BLOOD COUNT 2.58 X10^6/uL (4.7-6.0); RED CELL DISTRIBUTION WIDTH 15.7 % (11.6-16.5); WHITE BLOOD COUNT 5.6 X10^3/uL (3.6-10.0)
[2018-12-16 06:04] LABS: ALBUMIN 2.1 g/dL (3.4-5.0); CALCIUM 7.4 mg/dL (8.5-10.1); CARBON DIOXIDE 15.9 mmol/L (21-32); COR CA(FOR HYPOALB) 8.9 mg/dL (8.5-10.1); CREATININE 7.02 mg/dL (0.70-1.30); TOTAL PROTEIN 4.9 g/dL (6.4-8.2)
[2018-12-16] MEDS: HEPARIN SODIUM INJ 5000 UNITS SC SCH ×3 (06:14→21:02)
[2018-12-16] MEDS: NS 1000 ML 1,000 ML IV SCH ×2 (06:14→20:58)
[2018-12-16] MEDS: SODIUM BICARBONATE TAB 650MG PO SCH ×3 (06:15→18:00)
[2018-12-16] MEDS: HumuLIN R SC PRN ×4 (06:16→21:03)
[2018-12-16 06:38] LABS: PLATELET MORPHOLOGY COMMENT NORMAL (NORMAL)
[2018-12-16] MEDS: HYDROCHLOROTHIAZIDE 25 MG TAB PO SCH (08:03)
[2018-12-16] MEDS: COZAAR PO SCH (08:03)
[2018-12-16] MEDS: APRESOLINE TAB 10 MG PO SCH ×2 (08:03→21:02)
[2018-12-16] MEDS: HEMOCYTE-PLUS PO SCH (08:03)
[2018-12-16] MEDS: ZOFRAN INJ 4 MG VIAL IVP PRN (08:03)
[2018-12-16] MEDS ORDERED: PHARMACY CONSULT - DOSE _____ XX SCH (09:00)
--- NOTE | 2018-12-16 09:48 | RAD ---
HISTORY: Shortness of breath Study: Chest AP portable Comparison: 12/14/2018 Findings: The heart is mildly enlarged. No congestive heart failure is noted. No acute alveolar infiltrates or pleural effusions are identified. The bony thorax is unremarkable. IMPRESSION: Mild cardiomegaly without congestive heart failure Lungs clear Reported By:
[2018-12-16] MEDS ORDERED: DEXFERRUM or INFED 25 MG in NS 100 ML IV 100 ML IV NR (11:00)
[2018-12-16] MEDS ORDERED: DEXFERRUM or INFED 975 MG in NS 500 ML IV 500 ML IV NR (12:00)
[2018-12-16 14:00] LABS: BASOPHILS # (AUTO) 0.1 X10^3/uL (0.0-0.1); EOSINOPHILS # (AUTO) 0.2 x10^3/uL (0.0-0.2); EOSINOPHILS % (AUTO) 4.3 % (0.9-2.9); HEMATOCRIT 24.4 % (42.0-54.0); LYMPHOCYTES # (AUTO) 1.2 X10^3/uL (1.3-2.9); LYMPHOCYTES % (AUTO) 20.8 % (21.0-51.0); MEAN CORPUSCULAR HGB CONC 32.9 g/dL (33.0-35.0); MEAN CORPUSCULAR VOLUME 88.2 fL (80.0-100.0); MEAN PLATELET VOLUME 7.9 fL (7.4-11.0); MONOCYTES # (AUTO) 0.4 x10^3/uL (0.3-0.8); MONOCYTES % (AUTO) 7.7 % (0.0-13.0); NEUTROPHILS # (AUTO) 3.7 x10^3/uL (2.2-4.8); NEUTROPHILS % (AUTO) 66.2 % (42.0-75.0); PLATELET COUNT 261 X10^3/uL (150.0-450.0); RED BLOOD COUNT 2.77 X10^6/uL (4.7-6.0); RED CELL DISTRIBUTION WIDTH 15.7 % (11.6-16.5); WHITE BLOOD COUNT 5.6 X10^3/uL (3.6-10.0)
[2018-12-16 14:08] LABS: ALBUMIN 2.3 g/dL (3.4-5.0); CALCIUM 7.5 mg/dL (8.5-10.1); COR CA(FOR HYPOALB) 8.9 mg/dL (8.5-10.1); CREATININE 7.07 mg/dL (0.70-1.30); TOTAL PROTEIN 5.3 g/dL (6.4-8.2)
[2018-12-16] MEDS ORDERED: CATAPRES TAB 0.1 MG PO ONE (15:19)
[2018-12-16] MEDS ORDERED: APRESOLINE INJ 20 MG VIAL IVP PRN (17:55)
[2018-12-16] MEDS: PROTONIX TAB 40 MG PO SCH (21:02)
[2018-12-16] MEDS: FLOMAX PO SCH (21:02)
[2018-12-17 05:54] LABS: BASOPHILS # (AUTO) 0.1 X10^3/uL (0.0-0.1); BASOPHILS % (AUTO) 0.9 % (0.2-1.0); EOSINOPHILS # (AUTO) 0.3 x10^3/uL (0.0-0.2); EOSINOPHILS % (AUTO) 4.9 % (0.9-2.9); HEMATOCRIT 22.6 % (42.0-54.0); HEMOGLOBIN 7.5 g/dL (13.5-18.0); LYMPHOCYTES # (AUTO) 1.4 X10^3/uL (1.3-2.9); LYMPHOCYTES % (AUTO) 24.4 % (21.0-51.0); MEAN CORPUSCULAR HEMOGLOBIN 29.4 pg (27.0-34.0); MEAN CORPUSCULAR HGB CONC 33.4 g/dL (33.0-35.0); MEAN CORPUSCULAR VOLUME 88.3 fL (80.0-100.0); MEAN PLATELET VOLUME 7.9 fL (7.4-11.0); MONOCYTES # (AUTO) 0.5 x10^3/uL (0.3-0.8); MONOCYTES % (AUTO) 8.7 % (0.0-13.0); NEUTROPHILS # (AUTO) 3.5 x10^3/uL (2.2-4.8); NEUTROPHILS % (AUTO) 61.1 % (42.0-75.0); PLATELET COUNT 251 X10^3/uL (150.0-450.0); RED BLOOD COUNT 2.56 X10^6/uL (4.7-6.0); RED CELL DISTRIBUTION WIDTH 15.6 % (11.6-16.5); WHITE BLOOD COUNT 5.7 X10^3/uL (3.6-10.0)
[2018-12-17 06:03] LABS: ALBUMIN 2.1 g/dL (3.4-5.0); CALCIUM 7.3 mg/dL (8.5-10.1); CARBON DIOXIDE 18.4 mmol/L (21-32); COR CA(FOR HYPOALB) 8.8 mg/dL (8.5-10.1); CREATININE 6.82 mg/dL (0.70-1.30); TOTAL PROTEIN 4.9 g/dL (6.4-8.2)
[2018-12-17] MEDS: NS 1000 ML 1,000 ML IV SCH (06:07)
[2018-12-17] MEDS: HEPARIN SODIUM INJ 5000 UNITS SC SCH (06:08)
[2018-12-17] MEDS: HumuLIN R SC PRN ×2 (06:09→12:14)
[2018-12-17] MEDS: SODIUM BICARBONATE TAB 650MG PO SCH ×2 (06:09→12:14)
[2018-12-17 06:35] LABS: PLATELET MORPHOLOGY COMMENT NORMAL (NORMAL)
[2018-12-17] MEDS: HEMOCYTE-PLUS PO SCH (08:18)
[2018-12-17] MEDS: HYDROCHLOROTHIAZIDE 25 MG TAB PO SCH (08:18)
[2018-12-17] MEDS: APRESOLINE TAB 10 MG PO SCH (08:19)
[2018-12-17] MEDS: COZAAR PO SCH (08:19)
[2018-12-17] MEDS ORDERED: APRESOLINE INJ 20 MG VIAL IVP ONE (08:32)
[2018-12-17] MEDS: ZOFRAN INJ 4 MG VIAL IVP PRN (09:10)
[2018-12-17 12:16] VITALS: BP 178/76
== END 2018-12-17 12:20 | disposition home or self-care (01) ==
LOC: ER 02:46 → MED/SURG 02:46
PROVIDERS: ADMIT Internal Medicine; ATTEND Internal Medicine
DX: R41.82 Altered mental status, unspecified; E11.649 Type 2 diabetes mellitus with hypoglycemia without coma; N18.6 End stage renal disease; E87.5 Hyperkalemia; Z79.4 Long term (current) use of insulin; I10 Essential (primary) hypertension
CPT/HCPCS: 36415; 71010; 71045; 80048; 80053; 81001; 82607; 82728; 83540; 83880; 84466; 85025; 87070; 87075; 87077; 87186; 87205; 93005; 94760; 96365; 96367; 96372; 96374; 99284; A4222; G0378; J0360; J1644; J1750; J1815; J1940; J2405; J7030; J7040; J7050